=== PATIENT | female | born 1930 | race Caucasian/White ===

== ENCOUNTER 2017-12-07 11:50 | Inpatient (IN) | payer MEDICARE | END 2017-12-18 09:00 | DRG 177 | LOC: D.ER 11:50 → D.M2 16:52 | DX: J10.08 Influenza due to other identified influenza virus with other specified pneumonia (principal); J96.01 Acute respiratory failure with hypoxia; J15.6 Pneumonia due to other Gram-negative bacteria; I50.30 Unspecified diastolic (congestive) heart failure; J13 Pneumonia due to Streptococcus pneumoniae; H35.30 Unspecified macular degeneration; R25.1 Tremor, unspecified; S92.401A Displaced unspecified fracture of right great toe, initial encounter for closed fracture; X58.XXXA Exposure to other specified factors, initial encounter; R41.0 Disorientation, unspecified; Z86.73 Personal history of transient ischemic attack (TIA), and cerebral infarction without residual deficits; E87.6 Hypokalemia ==

== ENCOUNTER 2018-12-20 02:27 | Inpatient (IN) | payer MEDICARE ==
[~2018-12-20] VITALS: Ht 162.6 cm; Wt 74.1 kg
[2018-12-20] VITALS (73 sets, daily range): BP systolic 39–167; BP diastolic 23–130; BMI 28.6
--- NOTE | ~2018-12-20 | HEMODYNAMI ---
PATIENT:LOBO HILARIO MEDICAL RECORD: [id number] : 30 LOCATION:[id number] ADMISSION DATE: 12/20/18 Generatedon:12/20/201813:28 Patient name: LOBO HILARIO Patient #: [id number] SSN: : [id number] Date of study: 12/20/2018 Page: Of Hemodynamic Procedure Report Patient Data Patient Demographics Procedure consent was obtained First Name: LOBO Gender: Female Last Name: SULAIMAN : 1930 [facility] Initial: L Age: 88 year(s) Patient #: [id number] Race: Unknown Additional ID: [id number] Contact details Address: [address] [address] State: [place] City: [place] Zip code: [address] Admission Admission Data Admission Date: 12/20/2018 Admission Time: 6:15 Arrival Date: 12/20/2018 Arrival Time: 6:15 Admit Source: Other Insurance Payor: Medicare Room #: D.[id number] Procedure Procedure Types Cath Procedure Diagnostic Procedure LHC LHC w/Coronaries Sedation Charges Moderate Sedation up to 30 minutes PCI Procedure Coronary Stent Coronary Stent Initial x2 Procedure Description Procedure Date Procedure Date: 12/20/2018 Procedure Start Time: 12:28 Procedure End Time: 13:14 Procedure Staff Name Function Tiffani Peck RT Monitor Emanuel Doll RN Nurse Vel Martinez MD Performing Physician Sara Varner RT Scrub Procedure Data Cath Procedure Fluoroscopy Diagnostic fluoroscopy Total fluoroscopy Time: time: 14.5 min 14.5 min Diagnostic fluoroscopy Total fluoroscopy dose: dose: 2014 mGy 2015 mGy Contrast Material Contrast Material Type Amount (ml) Isovue 300 175 Entry Location Entry Primary Successful Side Size Upsize Upsize Entry Closure Succes sful Closure Location (Fr) 1 (Fr) 2 (Fr) Remarks Device Remarks Femoral Right 5 Fr 6 Fr Exoseal artery Short Estimated blood loss: 5 ml Diagnostic catheters Device Type Used For End Catheter Placement MULTIPACK JL 4.0 5Fr Left Coronary catheter Angiography MULTIPACK 3DRC 5Fr Right Coronary catheter Angiography MULTIPACK Pigtail 5 Fr LV Angiography catheter Procedure Complications No complications Procedure Medications Medication Administration Route Dosage Oxygen Levophed (8mg/250ml I.V. drip 10 mcg/min D5W) Diprivan 1% I.V. 30 mcg/kg/min (Propofol) 0.9% NaCl I.V. 125 ml/hr Lidocaine 2% added to field 20 Heparin Flush Bag added to field 2 bags (1000units/500ml NS) Heparin Bolus I.V. 7000 units Nitroglycerin IC/IA I.C. 100 mcg Integrilin (Bolus I.V. 6.2 ml 2mg/ml) Levophed (8mg/250ml I.V. drip 5 mcg/min D5W) Plavix 600 mg Hemodynamics Rest Heart Rate: 60 (bpm) Pressure Samples Time Site Value (mmHg) Purpose Heart Use Rate(bpm) 12:36 LV 217/22,36 Snapshot 56 12:36 LV 202/20,30 Pullback 56 12:36 AO 150/29(134) Pullback 56 Gradients Valve Time Site 1 Site 2 Mean SEP/DFP Peak To Heart Use (mmHg) (sec/min) Peak Rate (mmHg) (bpm) Aortic 12:36 LV AO 23 26 52 56 202/20,30 150/29(134) Calculations Valve P-P Mean Valve Index Valve Source Name Gradient Area Flow (cm2) Aortic 52 23 52 23 Snapshots Pre Cath Intra NCS Post Cath Vital Signs Time Heart Resp SPO2 etCO2 NIBP (mmHg) Rhythm Pain Sedation Rate (ipm) (%) (mmHg) Status Level (bpm) 12:17:09 59 14 98 0 136/57(100) NSR 0 (11) 5(A) , No pain 12:22:36 56 14 100 0 123/55(95) NSR 0 (11) 5(A) , No pain 12:27:50 56 14 100 0 132/58(121) NSR 0 (11) 5(A) , No pain 12:33:15 57 17 100 0 150/60(118) NSR 0 (11) 5(A) , No pain 12:38:53 57 14 100 0 180/67(138) NSR 0 (11) 5(A) , No pain 12:45:02 57 14 100 0 138/55(100) NSR 0 (11) 5(A) , No pain 12:50:52 56 14 100 0 117/65(78) NSR 0 (11) 5(A) , No pain 12:56:16 55 14 100 0 166/66(126) NSR 0 (11) 5(A) , No pain 13:02:04 56 14 100 0 181/64(133) NSR 0 (11) 5(A) , No pain 13:06:45 55 14 100 0 195/72(144) NSR 0 (11) 5(A) , No pain 13:12:51 55 14 100 0 166/68(146) NSR 0 (11) 5(A) , No pain Medications Time Medication Route Dose Verified Delivered Reason Notes Effectiveness by by 12:16:28 Oxygen 100% per et Vel Buffie Per physician per icu intubated tube Karlos Doll RN vent settings 12:17:16 Levophed I.V. drip 10 mcg/min Vel Buffie Per physician (8mg/250ml D5W) Karlos Doll RN 12:17:54 Diprivan 1% I.V. 30 Vel Buffie Per physician for (Propofol) mcg/kg/min Karlos Doll RN sedatio n on vent 12:18:43 0.9% NaCl I.V. 125 ml/hr Vel Buffie Per physician Karlos Doll RN 12:18:57 Lidocaine 2% added to 20ml vial Vel Vel for local field Karlos Martinez MD anesthetic 12:19:06 Heparin Flush added to 2 bags Vel Vel used for Bag field Karlos Martinez MD procedure (1000units/500ml NS) 12:41:15 Heparin Bolus I.V. 7000 units Vel Buffie for verified Karlos Doll RN anticoagulation with dr martinez 12:49:05 Nitroglycerin I.C. 100 mcg Vel Vel for IC/IA Karlos Martinez MD vasodilation 12:49:14 Integrilin I.V. 6.2 ml Vel Buffie for Wasted (Bolus 2mg/ml) Karlos Doll RN antiplatelet 3.8 ml therapy of vial 13:15:05 Levophed I.V. drip 5 mcg/min Vel Buffie Per physician (8mg/250ml D5W) Karlos Doll RN 13:20:40 Plavix via ngt 600 mg Vel Castellanos for with 20 Karlos Doll RN antiplatelet ml flush therapy Procedure Log Time Note 11:49:45 Admit Source: Other 11:49:48 Arrival Date: 12/20/2018 6:15:00 AM 11:49:57 Insurance Payor : Medicare 11:50:36 Diagnostic Cath Status : Elective 11:50:54 Emanuel Doll RN sent for patient. Start room use. 11:50:55 Time tracking: Regular hours (M-F 7:00 - 5:00) 11:51:01 Plan of Care:Hemodynamics will remain stable., Cardiac rhythm will remain stable., Comfort level will be maintained., Respiratory function will remain adequate., Patient/ family verbilizes understanding of procedure., Procedure tolerated without complication., Recovers from procedure without complications.. 12:07:02 Patient received from ICU to CCL 1 Alert and oriented. Tansferred to table in Supine position. 12:07:03 Correct patient and procedure confirmed by team. 12:07:03 Warm blankets applied, and gabrielle hugger turned on for patient comfort. 12:07:05 Signed procedure consent form obtained from patient. 12:07:06 ECG and BP/O2 sat monitors applied to patient. 12:14:24 Vital chart was started 12:14:51 Baseline sample Acquired. 12:14:58 Rhythm: sinus bradycardia 12:15:00 Full Disclosure recording started 12:15:04 H&P Date Dictated: 12/20/2018 New H&P dictated by physician.. 12:15:06 Pre-procedure instructions explained to patient. 12:15:12 Pre-op teaching completed and patient verbalized understanding. 12:15:13 Family in waiting room. 12:15:18 Patient NPO since Midnight. 12:15:19 Is the patient allergic to Iodine/contrast media? No. 12:15:21 Was the patient premedicated? No 12:15:27 Is patient on blood thinner?Yes 12:15:31 ACC The patient was administered the following blood thiners within the last 24 hours: ACCLovenox 12:15:40 Patient diabetic? Yes. 12:15:42 If diabetic: On Metformin? No 12:15:44 Previous problem with sedation/anesthesia? No ? 12:15:46 Snore? Unknown 12:15:48 Sleep apnea? Unknown 12:15:53 Deviated septum? No 12:16:01 Opens mouth fully? Unknown 12:16:03 Sticks out tongue? Unknown 12:16:11 Airway obstruction? Yes pneumonia 12:16:14 Dentures? No ? 12:16:28 Oxygen per et tube 100% intubated was administered by Emanuel Doll RN; Per physician; per icu vent settings 12:17:16 Levophed (8mg/250ml D5W) 10 mcg/min I.V. drip was administered by Emanuel Doll RN; Per physician; 12:17:54 Diprivan 1% (Propofol) 30 mcg/kg/min I.V. was administered by Emanuel Doll RN; Per physician; for sedation on vent 12:18:43 0.9% NaCl 125 ml/hr I.V. was administered by Emanuel Doll RN; Per physician; 12:18:57 Lidocaine 2% 20ml vial added to field was administered by Vel Martinez MD; for local anesthetic; 12:19:06 Heparin Flush Bag (1000units/500ml NS) 2 bags added to field was administered by Vel Martinez MD; used for procedure; 12:22:21 Pre procedure: right dorsailis pedis pulse 2+ Normal; easily identifiable; not easily obliterated 12:22:24 Pre procedure: left dorsailis pedis pulse 2+ Normal; easily identifiable; not easily obliterated 12:22:28 Patient pain scale 0/10 ?. 12:23:12 IV patent on arrival in right forearm, left forearm, Rt subclavian with 0.9% NaCl at [facility]. 12:23:16 Lab results completed and on chart. 12:23:22 Right groin area was prepped with chlora-prep and draped in sterile fashion 12::23 Sharps counted by scrub and verified by R.N. 12::23 Alarms reviewed by R. N. 12:23:26 Physician arrived 12::27 --------ALL STOP TIME OUT------ 12:23:28 Final Timeout: patient, procedure, and site verified with staff and physician. All members of the team are in agreement. 12:23:43 Right groin site verified by team. 12:23:50 Fire Safety Assessment: A--An alcohol-based skin anteseptic being used preoperatively., C--Open oxygen or nitrous oxide is being used., D--An ESU, laser, or fiber-optic light is being used. 12:23:54 Physical assessment completed. ASA score P 5 - A moribund patient who is not expected to survive without the operation as per Vel Martinez MD. 12:23:59 Sedation plan: IV Moderate Sedation Medication:Versed, Fentanyl 12:24:12 Use device set Femoral Dx 12:24:13 ACIST Syringe (26085) opened to sterile field. 12:24:14 DIAGNOSTIC WIRE .035 260cm J wire (828933) opened to sterile field. 12:24:14 Medline Cath Pack ([id number]) opened to sterile field. 12:24:14 Bag Decanter (2002S) opened to sterile field. 12:24:16 ACIST Hand Control (49174) opened to sterile field. 12:24:17 ACIST Manifold (40918) opened to sterile field. 12:24:18 DIAGNOSTIC Multipack 5Fr catheter set (BL5782) opened to sterile field. 12:24:21 Tegaderm 4 x 4 (1626W) opened to sterile field. 12:24:22 SHEATH 5FR Artemus (CFG549) opened to sterile field. 12:27:51 Procedure started. 12:28:04 Local anesthetic to right femoral artery with Lidocaine 2% by Vel Martinez MD.INITIAL ACCESS ONLY 12:28:12 A 5 Fr sheath was inserted into the Right Femoral artery 12:28:58 A MULTIPACK JL 4.0 5Fr catheter was advanced over the wire and used for Left Coronary Angiography. 12:30:47 LCA angiography performed. 12:30:50 Injector settings: Ml/sec: 3, Volume: 6, 12:31:39 CVL line checked and in place 12:32:24 Catheter removed. 12:32:29 A MULTIPACK 3DRC 5Fr catheter was advanced over the wire and used for Right Coronary Angiography. 12:33:40 RCA angiography performed. 12:34:03 Injector settings: Ml/sec: 3, Volume: 6, 12:34:16 Catheter removed. 12:35:37 A MULTIPACK Pigtail 5 Fr catheter was advanced over the wire and used for LV Angiography. 12:36:10 LV hemodynamics recorded. 12:36:12 LV gram done using MCDONALD 12:36:15 Injector settings: Ml/sec: 5, Volume: 15, 12:37:04 Proceeding to intervention. 12:37:24 EF : 15 % 12:37:43 Catheter removed. 12:38:15 GUIDE 6FR XBLAD 3.5 catheter ([id number]) opened to sterile field. 12:38:16 INFLATOR Merit BasixCompak (FK5255) opened to sterile field. 12:38:16 BMW 300cm [place] 2 J wire ([id number]) opened to sterile field. 12:38:17 SHEATH 6FR Artemus (SRU065) opened to sterile field. 12:38:31 Sheath upsized to a 6 Fr Short. 12:38:41 6 Fr xblad 3.5 guide catheter was inserted over the wire 12:38:45 bmw wire advanced. 12:41:15 Heparin Bolus 7000 units I.V. was administered by Emanuel Doll RN; for anticoagulation; verified with dr martinez 12:43:02 Wire advanced across lesion. 12:44:11 Inflate balloon Inflation number: 1 A EMERGE OTW 2.0 x 12 balloon ([id number]) was prepped and advanced across the Prox CX, then inflated to 10 SUSAN for 0:10 (min:sec). 12:45:11 Balloon removed over the wire. 12:48:24 Place stent Inflation Number: 2 A INTEGRITY OTW 2.5 X 12 stent ([id number]) was prepped and advanced across the Prox CX. The stent was deployed at 12 SUSAN for 0:10 (min:sec). 12:48:34 Stent catheter was removed intact over wire. 12:49:05 Nitroglycerin IC/IA 100 mcg I.C. was administered by Vel Martinez MD; for vasodilation; 12:49:14 Integrilin (Bolus 2mg/ml) 6.2 ml I.V. was administered by Emanuel Doll RN; for antiplatelet therapy; Wasted 3.8 ml of vial 12:49:30 patient went into Ventricular Tachycardia 12:49:51 Quick combo pads placed on patients chest and back. 12:50:05 Defibrillator synced and charged to 200 Joules. 12:50:07 Shock delivered. 12:51:34 Patient cardioverted to sinus rhythm . 12:55:55 Place stent Inflation Number: 3 A INTEGRITY OTW 2.25 X 12 stent ([id number]) was prepped and advanced across the Prox CX. The stent was deployed at 12 SUSAN for 0:10 (min:sec). 13:00:11 Stent catheter was removed intact over wire. 13:00:24 Wire redirected to diagonal. 13:05:57 Inflation number: 1 The EMERGE OTW 2.0 x 12 balloon ([id number]) was reinflated across the 1st Diag, to 10 SUSAN for 0:10 (min:sec). 13:06:27 Inflation number: 2 The EMERGE OTW 2.0 x 12 balloon ([id number]) was reinflated across the 1st Diag, to 12 SUSAN for 0:10 (min:sec). 13:08:19 Balloon removed over the wire. 13:10:51 Place stent Inflation Number: 3 A INTEGRITY OTW 2.5 X 18 stent ([id number]) was prepped and advanced across the 1st Diag. The stent was deployed at 12 SUSAN for 0:10 (min:sec). 13:11:46 Stent catheter was removed intact over wire. 13:11:47 Guide catheter removed. 13:11:47 Wire removed. 13:12:46 EXOSEAL 6Fr (EX600) opened to sterile field. 13:12:56 Sheath removed intact; hemostasis achieved with Exoseal to the Right Femoral artery. 13:12:58 Procedure ended.(Physican Out) 13:13:24 Fluoroscopy time 14.50 minutes. 13:13:29 Fluoroscopy dose: 2014 mGy 13:13:29 Flurop Dose total: 2014 13:13:34 Contrast amount:Isovue 300 175ml. 13:13:36 Sharps counted by scrub and verified by R.N. 13:13:37 Insertion/operative site no bleeding no hematoma. 13:13:40 Post-op/insertion site Right Femoral artery dressed using a 4 x 4 and Tegaderm. 13:13:43 Post right femoral artery:stable 13:13:45 Post Procedure Pulses reassessed and unchanged 13:13:47 Post procedure rhythm: unchanged. 13:13:50 Estimated blood loss: 5 ml 13:13:52 Post procedure instruction explained to patient.Patient verbalizes understanding. 13:13:53 Patient needs reinforcement of post procedure teaching. 13:14:11 Procedure type changed to Cath procedure, Diagnostic procedure, LHC, LHC w/Coronaries, Sedation Charges, Moderate Sedation up to 30 minutes, PCI procedure, Coronary Stent, Coronary Stent Initial x2 13:14:15 Procedure and supply charges have been captured, reviewed, submitted and are correct. 13:14:23 Procedure Complication : No complications 13:14:26 See physician's report for complete and final results. 13:14:26 Vital chart was stopped 13:14:36 Report given to ICU. 13:14:38 Patient transfered to ICU with Stretcher. 13:14:41 Full Disclosure recording stopped 13:14:41 Procedure ended. 13:14:56 ACC-PCI Only Patient was given prescriptions, or instructed by Vel Martinez MD to start/continue the following medications upon discharge: Plavix 13:14:58 End room use (Document Last) 13:15:05 Levophed (8mg/250ml D5W) 5 mcg/min I.V. drip was administered by Emanuel Doll RN; Per physician; 13:20:40 Plavix 600 mg via ngt was administered by Emanuel Doll RN; for antiplatelet therapy; with 20 ml flush Intervention Summary Intervention Notes Time ActionType Lesion and Equipment Action# Pressure Duration Attributes Used 12:44:11 Inflate Prox CX EMERGE OTW 1 10 00:10 balloon 2.0 x 12 balloon ([id number]) 12:48:24 Place stent Prox CX INTEGRITY 2 12 00:10 OTW 2.5 X 12 stent ([id number]) 12:55:55 Place stent Prox CX INTEGRITY 3 12 00:10 OTW 2.25 X 12 stent ([id number]) 13:05:57 Reinflate 1st Diag EMERGE OTW 1 10 00:10 balloon 2.0 x 12 balloon ([id number]) 13:06:27 Reinflate 1st Diag EMERGE OTW 2 12 00:10 balloon 2.0 x 12 balloon ([id number]) 13:10:51 Place stent 1st Diag INTEGRITY 3 12 00:10 OTW 2.5 X 18 stent ([id number]) Device Usage Item Name Manufacture Quantity Catalog Number Hospital Part Current [facility] Lot# / Charge Number Stock Stock Serial# Code ACIST Acist 1 47484 877197 005172 905553 20 Syringe Medical (11476) Systems Inc Bag Decanter Microtek 1 681675 67236 288218 5 () Medical Inc. Medline Cath Medline 1 [id number] 026574 47879 111620 5 Pack ([id number]) DIAGNOSTIC St Harjeet 1 388393 211439 046436 082940 30 WIRE .035 260cm J wire (425806) ACIST Hand Acist 1 70672 999475 097087 873071 5 Control Medical (07662) Systems Inc ACIST Acist 1 15757 197485 539628 050769 5 Manifold Medical (12981) Systems Inc DIAGNOSTIC Cardinal 1 UX6408 808263 56041 220795 30 Multipack Health 5Fr catheter set (BN4609) Tegaderm 4 x 3M 1 1626W 364468 546379 773172 5 4 (1626W) SHEATH 5FR Terumo 1 ZXV832 169141 476593 173127 5 Artemus (SNL640) MULTIPACK JL Cardinal 1 325903 5 4.0 5Fr Health catheter MULTIPACK Cardinal 1 663274 5 3DRC 5Fr Health catheter MULTIPACK Cardinal 1 680952 5 Pigtail 5 Fr Health catheter GUIDE 6FR Cardinal 1 [id number] 267959 372720 850518 10 XBLAD 3.5 Health catheter ([id number]) BMW 300cm Nguyen 1 [id number] 711344 236348 234472 5 [place] 2 Vascular J wire (2000654G) INFLATOR Merit 1 DX1247 302188 308868 088740 15 [facility] Medical BasixCompak (LY0804) SHEATH 6FR Terumo 1 JHA621 405677 464331 765197 40 Artemus (PCP263) EMERGE OTW [place] 1 [id number] 111307 282125 248831 5 [id number] 2.0 x 12 Scientific balloon ([id number]) INTEGRITY Medtronic 1 [id number] 236455 957488 165264 3 [id number] OTW 2.5 X 12 stent ([id number]) INTEGRITY Medtronic 1 [id number] 952825 191380 327804 7 [id number] OTW 2.25 X 12 stent ([id number]) INTEGRITY Medtronic 1 [id number] 524344 486438 611846 8 [id number] OTW 2.5 X 18 stent ([id number]) EXOSEAL 6Fr Cardinal 1 EX600 476190 028245 669401 10 (EX600) Health Signature Audit Senath Stage Time Signature Unsigned Intra-Procedure 12/20/2018 Tiffani Peck RT(R) 1:26:47 PM RT(R) 12/20/2018 1:28:25 PM Intra-Procedure 12/20/2018 Tiffani Peck 1:28:55 PM RT(R) Signatures Monitor : Tiffani Peck RT Signature : Date : Time : [id number] [place] [address]
[~2018-12-20 02:27] MED LIST: ACETAMINOPHEN325 MG PO; ALBUTEROL2.5 MG/3 M UPD; BENADRYL25 MG PO; FAMVIR500 MG PO; K-TAB10 MEQ PO; LASIX20 MG PO; MELOXICAM; MOBIC7.5 MG PO; MUCINEX600 MG PO; OCUFLOX 0.3 % OP5 ML RIGHT EYE; PRED FORTE5 ML EACH EYE; PROPRANOLOL HCL60 MG PO; TRAVATAN Z2.5 ML EACH EYE; VALTREX1000 MG PO
[2018-12-20] MEDS ORDERED: TRAVATAN Z2.5 ML EACH EYE (02:50)
[2018-12-20] MEDS ORDERED: ARICEPT23 MG PO (02:50)
[2018-12-20 03:18] LABS: BASOPHILS 0.2 % (0-2); EOSINOPHILS 0.5 % (0-7); HEMATOCRIT 43.5 % (36.0-48.0); HEMOGLOBIN 14.5 g/dL (12-16); IMMATURE GRANULOCYTES 0.6 % (0-5); MCH 31.3 pg (26.0-34.0); MCHC 33.3 g/dL (31.0-37.0); MEAN PLATELET VOLUME 10.1 fL (7.4-10.4); MONOCYTES 4.6 % (2-11); NEUTROPHILS 87.1 % (40-80); PLATELET COUNT 263 10x3/uL (130-400); RBC 4.63 10x6/uL (4.00-5.40); RDW 14.5 % (11.5-14.5); WBC 19.8 10x3/uL (4.8-10.8)
[2018-12-20 03:25] LABS: APTT 25.2 SECONDS (22.8-39.4); INR 1.04 (0.85-1.17); PROTIME 13.1 SECONDS (11.6-15.0)
[2018-12-20 03:30] LABS: ALBUMIN 3.2 g/dL (3.4-5.0); ALKALINE PHOSPHATASE 58 U/L (46-116); ALT (SGPT) 24 U/L (10-68); BILIRUBIN - TOTAL 0.74 mg/dL (0.2-1.3); CALC OSMOLALITY 295 mosm/kg (275-300); CALCIUM 8.5 mg/dL (8.5-10.1); CARBON DIOXIDE 23.3 mmol/L (21.0-32.0); CHLORIDE - SERUM 104 mmol/L (98-107); CREATININE - SERUM 1.4 mg/dL (0.6-1.3); GLUCOSE 296 mg/dL (74-106); POTASSIUM - SERUM 3.9 mmol/L (3.5-5.1); PROTEIN - SERUM 7.3 g/dL (6.4-8.2); SODIUM 142 mmol/L (136-145); UREA NITROGEN 18 mg/dL (7-18); eGFR NON AFRICAN AMERICAN 38 mL/min (90-120)
[2018-12-20 03:33] LABS: D-DIMER-QUANTITATIVE 13.66 ug/mLFEU (0.20-0.54)
[2018-12-20 03:45] LABS: CKMB 2.4 U/L (0.0-3.6); CREATINE KINASE 95 UL (21-215); PRO BNP 6982 pg/mL (0-450)
[2018-12-20 03:46] LABS: TROPONIN-I 0.488 ng/mL (0.000-0.060)
--- NOTE | 2018-12-20 03:48 | NUR ---
ELEVATED TROP 0.488. ADVISED EDP
--- NOTE | 2018-12-20 03:50 | NUR ---
PT MOVED TO TRAUMA ROOM 3 TO PREPARE FOR INTUBATION.
--- NOTE | 2018-12-20 04:03 | NUR ---
PT INTUBATED, 7.5 ETT, 22 AT THE LIP
--- NOTE | 2018-12-20 04:16 | NUR ---
PROPOFOL INFUSION STARTED AT 5MCG/KG.
--- NOTE | 2018-12-20 04:22 | NUR ---
AFTER POST INTUBATION XR EDP INSTRUCTS TO MOVE ETT BACK 3 CM. ETT NOW 25 AT THIS LIP. RT AT BEDSIDE.
--- NOTE | 2018-12-20 04:28 | NUR ---
INFUSION RATE OF PROPOFOL CHANGED TO 4MCG/KG DUE TO PT DECREASED BP.
--- NOTE | 2018-12-20 04:45 | NUR ---
PROPOFOL RATE INCREASED TO 5MCG/KG. PT TOLERATING WELL.
--- NOTE | 2018-12-20 05:20 | NUR ---
RN, RT, RADIOLOGY TRANSPORTED PT TO CT FOR CTA OF CHEST DUE TO ELEVATED D DIMER. PT TOLERATED WELL.
--- NOTE | 2018-12-20 06:30 | NUR ---
PT FAMILY UPDATED ON PLAN OF CARE. PT APPEARS TO BE RESTING COMFORTABLY, EYES CLOSED.
--- NOTE | 2018-12-20 07:25 | NUR ---
RECEIVED FROM ER FROM STRETCHER. TRANSFERED TO BED. AWAKES GRABS ETT WHEN SHE CAN. ETT SECURE BILATERAL LUNGS EQUAL AND VERY CONGESTED. PLACED ON VENT. IV X 2 RIGHT FOREARM SALINE LOCKED. LEFT AC 18 GAUGE INFUSING WITH NS AND DIPRIVAN GTT AT 25 MCG/KG/MIN. MORROW CATH PATENT DRAINING CLEAR YELLOW URINE. SCD APPLIED LOWER LEGS. FAMILY HERE
--- NOTE | 2018-12-20 09:15 | NUR ---
PATIENT BLOOD PRESSURE DROPPING, BOLUS NS STARTED. DR. DOWLING CALLED, STATES DR. GUTIERREZ IS FINGERNAIL SCULPTURER. CALLED DR. GUTIERREZ. ORDERS RECEIVED FOR BOLUS OF NS AND LEVOPHED GTT TO MAINTAIN SYS BLOOD PRESSURE GREATER THAN 90. ORDERS TO CONSULT DR. CABRERA. DR. CABRERA CALLED. LEVOPHED GTT AT 30 MCG/MIN. NS IV BOLUS INFUSING BLOOD PRESSURE STILL IN 70'S. ORDERS RECEIVED FOR VASOPRESSIN GTT. EKG, ECHO, TROPONIN LEVEL. CENTRAL LINE PLACEMENT BY SURGEON. CONSULT FOR DR. ROBLES.
--- NOTE | 2018-12-20 09:25 | NUR ---
rash noted on chest, abd and upper legs. dr. warren notified solu medrol 60 mg iv ordered. family notified of patient status. states pateint has never been allergic to anything in the past. levequin added to patient allergy list. levequin stopped.
[2018-12-20 09:50] LABS: APPEARANCE CLEAR (CLEAR); BILIRUBIN NEGATIVE (NEGATIVE); COLOR YELLOW (YELLOW); GLUCOSE NEGATIVE (NEGATIVE); KETONE NEGATIVE (NEGATIVE); NITRITE NEGATIVE (NEGATIVE); PROTEIN 2+ mg/dL (NEGATIVE); SPECIFIC GRAVITY 1.015 (1.005-1.020); UROBILINOGEN NORMAL (NORMAL)
[2018-12-20 09:52] LABS: BACTERIA FEW /hpf (NONE SEEN); EPITHELIAL CELLS 0-5 /hpf (0-5); HYALINE CAST 0-5 /lpf (NONE SEEN); RED CELLS - URINE 0-5 /hpf (0-5); WHITE CELLS - URINE 0-5 /hpf (0-5)
--- NOTE | 2018-12-20 10:45 | NUR ---
DR. CABERRA AND DR. GUTIERREZ NOTIFIED OF TROP LEVEL
--- NOTE | 2018-12-20 10:55 | NUR ---
DR. DENNIS AND TRAVIS PAGED REGARDING CONSULTS
--- NOTE | 2018-12-20 11:30 | NUR ---
DR. ROBLES HERE CENTRAL LINE PLACE IN ORGAN GRINDER RIGHT SUBCLAVIAN. PATIENT TOLERATED FAIR. CONSENT SIGNED BY SON JOSE ELIAS HAAS PATIENT POA. CONSENT FOR HEART CATH SIGNED
--- NOTE | 2018-12-20 12:05 | NUR ---
to pipelines laborer per bed and portable vent. levophed at 10 mcg/min. dipirvan at 25 mcg/kg/min. family notified patient has left
[2018-12-20 12:25] LABS: BASOPHILS 0.1 % (0-2); EOSINOPHILS 0.1 % (0-7); HEMOGLOBIN 13.2 g/dL (12-16); IMMATURE GRANULOCYTES 0.4 % (0-5); LYMPHOCYTES 23.8 % (15-50); MCH 30.6 pg (26.0-34.0); MCV 92.8 fL (80.0-100.0); MEAN PLATELET VOLUME 10.6 fL (7.4-10.4); MONOCYTES 3.8 % (2-11); NEUTROPHILS 71.8 % (40-80); PLATELET COUNT 224 10x3/uL (130-400); RBC 4.31 10x6/uL (4.00-5.40); RDW 14.4 % (11.5-14.5)
[2018-12-20 12:27] LABS: WBC 9.6 10x3/uL (4.8-10.8)
[2018-12-20 12:32] LABS: ANION GAP 20.8 mmol/L (8-16); CARBON DIOXIDE 23.7 mmol/L (21.0-32.0); CREATININE - SERUM 1.3 mg/dL (0.6-1.3); POTASSIUM - SERUM 3.5 mmol/L (3.5-5.1)
[2018-12-20 12:34] LABS: CALCIUM 6.9 mg/dL (8.5-10.1)
--- NOTE | 2018-12-20 13:50 | NUR ---
RETURNED TO ROOM PER BED. ETT SECURE RETURNED TO VENT. BILATERAL LUNG SOUNDS EQUAL STILL SOME CONGESTION BUT CLEARER. LEVOPHED AT 5 MCG/MIN. DIPRIVAN 30 MCG/KG/MIN. NS AT 125 ML HOUR. MONITOR SR. RIGHT GROIN WITHOUT BLEEDING SWELLING OR BRUISNG DRESSING DRY AND INTACT. FAINT PEDAL PULSE WITH DOPPLER. FAMILY NOTIFIED OF PATIENT RETURNED. ALLOW TO VISIT WITH PATIENT. CHEST X-RAY FOR LINE PLACEMENT DONE. MORROW CATH PATENT.
--- NOTE | 2018-12-20 14:15 | NUR ---
LEVOPHED INCREASED TO 10 MCG/MIN. RIGHT GROIN DRESSING DRY AND INTACT. FEET WARM PEDAL PULSE WITH DOPPLER
--- NOTE | 2018-12-20 14:30 | NUR ---
LEOPHED AT 7 MCG/MIN. DRESSING DRY AND INTACT RIGHT GROIN. PEDAL PULSES WITH DOPPLER. FAMILY UPDATED
--- NOTE | 2018-12-20 15:00 | NUR ---
LEVOPHED IN RIGHT SUBCLAVAIN CENTRAL LINE. STILL AT 7 MCG/MIN. CVP LINE SET READING 5. DIPIRVAN AT 30 MCG/GKMIN. NO CHANGES
--- NOTE | 2018-12-20 16:01 | NUR ---
LEVOPHED STILL AT 7 MCG/MIN. RIGHT GROIN DRESSING DRY AND INTACT. NG DRAINING CLEAR LIQUID. MOD AMOUNT. MINIMAL SECRETIONS FROM MOUTH AND ETT.
--- NOTE | 2018-12-20 17:00 | NUR ---
RIGHT GROIN DRESSING DRY AND INTACT. PEDAL PULSE IN ANKLE WITH DOPPLER. LEVOPHED STILL AT 7 MCG/MIN. DIPRIVAN AT 30 MCG/KG/MIN. RESTING WELL ON DIPRIVAN. FAMILY UPDATED
--- NOTE | 2018-12-20 18:00 | NUR ---
DIPRIVAN DECREASED TO 25 MCG/KG/MIN. LEVOPHED STILL AT 7 MCG/MIN. RIGHT GROIN DRESSING DRY AND INTACT. PEDAL PULSES AT ANKLE WITH DOPPLER. FEET WARM
--- NOTE | 2018-12-20 19:02 | NUR ---
REPORT RECEIVED, PT WITH EYES OPEN WATCHING TV. ALERT AND ORIENTED. NO VISABLE SIGNS OF BLEEDING NOTED. ON ROOM AIR. DENIES ANY NEEDS AT THIS TIME. CALL LIGHT IN REACH. WILL CONTINUE TO OBSERVE
--- NOTE | 2018-12-20 19:15 | NUR ---
REPORT RECEIVED. PT SEDATED ON VENT, A/C 15,500, 80%, 7 PEEP. RIGHT SUBCLAVIAN DRESSING INTACT WITH SCANT BLOOD NOTED. MORROW NOTED WITH YELLOW URINE NOTED. REPOSITIONING PROVIDED. WILL CONTINUE TO OBSERVE.
--- NOTE | 2018-12-20 19:25 | NUR ---
REPORT RECEIVED. PT ALERT AND ORIENTED. VITALS SIGNS WNL. DENIES ANY NEEDS. CALL LIGHT IN REACH. WILL CONTINUE TO OBSERVE.
--- NOTE | 2018-12-20 20:46 | NUR ---
TRANSFER CENTER CALL AND GIVES REPORT OF DENIALS OF [facility], AND [facility] PACKETS SENT TO [facility], [facility], [facility]. , [facility], AND [facility].
--- NOTE | 2018-12-20 21:57 | NUR ---
PT CONTINUES SEDATION ON VENT. LEVOPHED DECREASED TO 6MCG/MIN FROM 7MCG/MIN CURRENT B/P 107/56 MAP 75. WILL CONTINUE TO OBSERVE AND TITRATE TOLERATED.
--- NOTE | 2018-12-20 23:12 | NUR ---
REASSESSMENT COMPLETED, SEE FLOW SHEET. NO CHANGES NOTED. WILL CONTINUE TO OBSERVE
[2018-12-21] VITALS (46 sets, daily range): BP systolic 85–161; BP diastolic 38–95; Ht 162.6 cm; Wt 74.1 kg
--- NOTE | 2018-12-21 01:49 | NUR ---
LEVOPHED DECREASED FROM 4MCG TO 3MCG/MIN. PT TOLERATING TITRATION AT THIS TIME. WILL CONTINUE TOLERATED. WILL CONTINUE TO OBSERVE.
--- NOTE | 2018-12-21 02:35 | NUR ---
ASSESSING PEDAL PULSED WITH DOPPLER, PT BEGAN MOVING FEET, OPENED HER EYES. PT DID NOT FOLLOW COMMANDS. WILL CONTINUE TO OBSERVE.
--- NOTE | 2018-12-21 03:41 | NUR ---
REASSESSMENT COMPLETED, SEE FLOW SHEET. CVL DRESSING CHANGED DUE TO BLEEDING FROM BEING GIVEN HEPARIN FROM HEART CATH. NO FRESH BLEEDING NOTED WITH REMOVAL OF OLD DRESSING. PT TOLERATED WELL. WILL CONTINUE TO OBSERVE.
[2018-12-21 05:18] LABS: BASOPHILS 0.1 % (0-2); EOSINOPHILS 0 % (0-7); HEMATOCRIT 31.4 % (36.0-48.0); HEMOGLOBIN 10.6 g/dL (12-16); IMMATURE GRANULOCYTES 0.4 % (0-5); LYMPHOCYTES 9.1 % (15-50); MCH 30.6 pg (26.0-34.0); MCHC 33.8 g/dL (31.0-37.0); MCV 90.8 fL (80.0-100.0); MONOCYTES 3.7 % (2-11); NEUTROPHILS 86.7 % (40-80); PLATELET COUNT 223 10x3/uL (130-400); RBC 3.46 10x6/uL (4.00-5.40); RDW 14.9 % (11.5-14.5); WBC 16.5 10x3/uL (4.8-10.8)
--- NOTE | 2018-12-21 05:27 | NUR ---
BATH GIVEN WITH COMPLETE LINEN CHANGE. PT TOLERATED WELL. FOLLOWED SOME COMMANDS. LEVOPHED STOPPED AT 0500, TOLERATING WELL AT THIS TIME. WILL CONTINUE TO OBSERVE
[2018-12-21 05:56] LABS: BILIRUBIN - DIRECT 0.13 mg/dL (0.00-0.30); BILIRUBIN - INDIRECT 0.22 mg/dL (0.00-1.00); BILIRUBIN - TOTAL 0.35 mg/dL (0.2-1.3); CARBON DIOXIDE 22.2 mmol/L (21.0-32.0); CREATININE - SERUM 1.2 mg/dL (0.6-1.3); MAGNESIUM - SERUM 1.7 mg/dL (1.8-2.4); POTASSIUM - SERUM 3.2 mmol/L (3.5-5.1); VANCOMYCIN - RANDOM 9.1 ug/mL (10.0-20.0)
[2018-12-21 05:57] LABS: ALBUMIN 1.9 g/dL (3.4-5.0); CALCIUM 6.7 mg/dL (8.5-10.1); PROTEIN - SERUM 4.9 g/dL (6.4-8.2)
[2018-12-21 05:58] LABS: TROPONIN-I 7.864 ng/mL (0.000-0.060)
--- NOTE | 2018-12-21 07:00 | NUR ---
RECEIVED BEDSIDE REPORT ON PATIENT AND ASSUMED CARE OF PATIENT. PATIENT RESTING QUIETLY, SEDATED ON VENT. WILL AWAKEN TO VOICE AND FOLLOW COMMANDS, DRIFTS BACK TO SLEEP EASILY. DIPROVAN GTT AT 20 MCG/KG/MIN (9.4 CC/HR). POTASSIUM AND MAGNESSIUM INFUSING PER ELECTROLYTE PROTOCOL. NS AT 125 CC/HR. RIGHT SUBCLAVIAN CVL PATENT WITH DRESSING C/D/I. CVP ZEROED AND LEVELED - 8. IV 18 GA TO LEFT AC IS NSL. PATENT WITH POSITIVE BLOOD RETURN, EASILY FLUSHED. VSS. HEAD TO TOE ASSESSMENT COMPLETED. MORROW CATH WITH CLEAR YELLOW UOP.
--- NOTE | 2018-12-21 08:56 | NUR ---
DR. ERIC AT ROOM AND EXAMINES PATIENT AND UPDATED. ADVISED TO DECREASE FIO2 FROM 80% TO 50%. WILL TURN DOWN SEDATION AND BEGIN CPAP TRIAL FOR POSSIBLE EXTUBATION TODAY.
--- NOTE | 2018-12-21 09:00 | NUR ---
PATIENT TURNED AND REPOSITIONED VSS. FAMILY AT BEDSIDE QUESTIONS ANSWERED AND UPDATED ON PLAN OF CARE FOR DAY AND PATIENTS CONDITION.
--- NOTE | 2018-12-21 10:00 | NUR ---
CERTIFIED SURGICAL TECH/FIRST ASSISTANT AT ROOM AND ECHOCARIDOGRAM IN PROGRESS. VSS.
--- NOTE | 2018-12-21 10:35 | NUR ---
ECHOCARIOGRAM COMPLETE, TOLERATED WELL. VSS.
--- NOTE | 2018-12-21 11:00 | NUR ---
REASSESSMENT COMPLETED. VSS. PATIENT TURNED AND REPOSITIONED IN BED.
--- NOTE | 2018-12-21 11:35 | NUR ---
DIPRIGUSTAVO ON HOLD. PLACED ON C-PAP PER DR ERIC VIA RT. WILL CONT TO MONITOR.
--- NOTE | 2018-12-21 13:09 | NUR ---
EXTUBATED TO 4L NC PER RT. TOLLERATED WELL. INSTRUCTED NOT TO PULL AT LINES. NODS HEAD YES. MORROW CATH WITH PINK TINGED URINE IN TUBE. WILL CONT TO MONITOR.
--- NOTE | 2018-12-21 14:00 | NUR ---
FAMILY AT BEDSIDE. UPDATE GIVEN.
--- NOTE | 2018-12-21 17:18 | NUR ---
FAMILY AT BEDSIDE. UPDTE GIVEN. SR ON THE MONITOR.
--- NOTE | 2018-12-21 18:22 | NUR ---
PT RECIEVED ALERT, DENIES ALL NEEDS,VSS, WILL CONTINUE TO MONITOR
--- NOTE | 2018-12-21 19:47 | NUR ---
REPORT RECEIVED. PT WITH EYES OPEN AND CHEST RISING. CONFUSION NOTED ADN SPEECH GARBLED. PT ON N/C AT 4LPM WITH SPO2 98%. MORROW PATENT WITH BLOODY URINE NOTED. PT WITH FREQUENT COUGH, AND USES YONKER TO SUCTION SELF. LUNG SOUNDS WITH CRACKLES ALL LOBES. HR RRR. NO S/S OF DISTRESS. CALL LIGHT IN REACH. WILL CONTINUE TO OBSERVE.
[2018-12-21] MEDS ORDERED: ARICEPT23 MG PO (20:58)
[2018-12-21] MEDS ORDERED: TESSALON PERLE100 MG PO (20:59)
--- NOTE | 2018-12-21 21:35 | NUR ---
PT WITH TREMORS. PT GIVEN SIPS OF WATER AND TOLERATED WELL. DR CHOWDHURY CALLED AND RECEIVED ORDERS TO START PTS HOME MEDICATIONS. ARICEPT 10MG, PROPRANOLOL 60MG FOR TREMORS, TESSALON PEARLS 100MG Q8H PRN FOR COUGH, AND TRAVOPROST EYE GTTS ONE DROP TO EACH EYE, ORDERS ENTERED INTO [employer].
--- NOTE | 2018-12-21 22:12 | NUR ---
PT RECEIVED PO MEDICATIONS WITHOUT DIFFICULTY. NO S/S OF ASPIRATION NOTED. NO S/S OF DISTRESS. CALL LIGHT IN REACH. WILL CONTINUE TO OBSERVE
--- NOTE | 2018-12-21 23:46 | NUR ---
REASSESSMENT COMPLETED, SEE FLOW SHEET. WILL CONTINUE TO OBSERVE.
[2018-12-22] VITALS (20 sets, daily range): BP systolic 146–188; BP diastolic 65–88
--- NOTE | 2018-12-22 01:39 | NUR ---
PT RESTING WITH EYES CLOSED AND CHEST RISING. NO S/S OF DISTRESS. CALL LIGHT IN REACH. WILL CONTINUE TO OBSERVE.
--- NOTE | 2018-12-22 01:52 | NUR ---
PT CATHETER LEAKING. GOWN AND PADS CHANGED. BALLOON DEFLATED AND REINFLATED WITH RESISTANCE WHEN LIGHTLY PULLED. URINE FLOW THROUGH TUBE.
--- NOTE | 2018-12-22 03:42 | NUR ---
REASSESSMENT COMPLETED, SEE FLOW SHEET. OCCASIONAL FORCEFULL COUGH NOTED, SPO2 REMAINS 95% OR GREATER. NO COMPLAINTS OF PAIN. WILL CONTINUE TO OBSERVE
[2018-12-22 04:39] LABS: BASOPHILS 0.1 % (0-2); EOSINOPHILS 0.5 % (0-7); HEMATOCRIT 27.7 % (36.0-48.0); HEMOGLOBIN 9.1 g/dL (12-16); IMMATURE GRANULOCYTES 0.4 % (0-5); LYMPHOCYTES 12.7 % (15-50); MCH 30.7 pg (26.0-34.0); MCHC 32.9 g/dL (31.0-37.0); MEAN PLATELET VOLUME 9.9 fL (7.4-10.4); MONOCYTES 4.5 % (2-11); NEUTROPHILS 81.8 % (40-80); PLATELET COUNT 195 10x3/uL (130-400); RBC 2.96 10x6/uL (4.00-5.40); RDW 15.4 % (11.5-14.5); WBC 14.7 10x3/uL (4.8-10.8)
[2018-12-22 04:56] LABS: MCV 93.6 fL (80.0-100.0)
[2018-12-22 05:01] LABS: ANION GAP 15.3 mmol/L (8-16); CALCIUM 7.3 mg/dL (8.5-10.1); CARBON DIOXIDE 21.4 mmol/L (21.0-32.0); CREATININE - SERUM 0.9 mg/dL (0.6-1.3); VANCOMYCIN - RANDOM 8.8 ug/mL (10.0-20.0)
[2018-12-22 05:16] LABS: POTASSIUM - SERUM 3.7 mmol/L (3.5-5.1)
--- NOTE | 2018-12-22 05:40 | NUR ---
FSBS 71 4OZ OF ORANGE JUICE GIVEN. PT TOLERATED WELL. NO S/S OF ASPIRATION WITH SWALLOWING. PT CONTINUES TO HAVE OCCASIONAL COUGH.
--- NOTE | 2018-12-22 06:27 | NUR ---
PT LINENS CHANGED DUE TO LEAKING AROUND MORROW CATH, POSSIBLY DUE TO PT COUGH. PERICARE PROVIDED. CATHCARE PROVIDED. COUGH LESS FREQUENT. WILL CONTINUE TO OBSERVE.
--- NOTE | 2018-12-22 07:00 | NUR ---
SHIFT ASSESSMENT COMPLTED. PT CARE ASSUMED, MONITORS ON AND WORKING. VITALS STABLE, PT AWAKE AND ALERT. NO SIGNS/SYMPTOMS OF PAIN OR DISCOMFORT NOTED AT THIS TIME. WILL CONTINUE TO OBSERVE.
--- NOTE | 2018-12-22 09:00 | NUR ---
PT TURNED AND REPOSITIONED FOR COMFORT, NO SIGNS/SYMPTOMS OF PAIN OR DISCOMFORT NOTED AT THIS TIME. CALL LIGHT WITHIN REACH. WILL CONTINUE TO OBSERVE.
--- NOTE | 2018-12-22 09:13 | NUR ---
NUTRITION F/U CHART REVIEWED. PT EXTUBATED, AWAITING SPEECH THERAPY. WILL PROVIDE DIET PER SPEECH REC'S, MONITOR PT PROGRESS. RD FOLLOWING
--- NOTE | 2018-12-22 11:00 | NUR ---
PT TURNED AND REPOSITIONED, ST AT BEDSIDE FOR SWALLOW EVAL. PUREED DIET AND THIN LIQUIDS RECOMMENDED PER ST AT THIS TIME. DIET ORDERS PUT IN. ORDERS REC'D TO TRANSFER PT TO FLOOR WHEN ROOM BECOMES AVAILABLE. SEE FLOW SHEET FOR FURTHER DETIALS. WILL CONTINUE TO OBSERVE.
--- NOTE | 2018-12-22 13:30 | NUR ---
PT RECIEVED FROM ICU, FAMILY AT BEDSIDE. RESPIRATIONS RAPID AND SHALLOW. RASPY COUGH NOTED. O2 @ 2L NC. PT IS ALERT, RESPONDS APPROPRIATELY TO STAFF AND FAMILY. SALINE LOC TO LEFT FOREARM INTACT. RIGHT SUBCLAVIAN INTACT WITH VANCOMYCIN PIGGY BACK INFUSING. F/C PATENT TO GRAVITY, DRAINING BLOOD TINGED URINE. DENIES PAIN. HOB ELEVATED. CL WITHIN REACH. ENCOURAGED TO CALL WITH NEEDS. WILL CONTINUE TO MONITOR.
--- NOTE | 2018-12-22 15:23 | NUR ---
PT RESTING QUIETLY IN BED. RESP REMAIN SHALLOW O2 @ 2L REMAINS IN PLACE. RESPONDS TO STAFF, DENYING NEEDS AT THIS TIME. CL WITHIN REACH. WILL CONTINUE TO MONITOR.
--- NOTE | 2018-12-22 15:50 | NUR ---
STAFF CALLED TO PT ROOM. PT FOUND COLD AND CLAMMY. RESP SHALLOW, 30-34 BPM. PT LESS RESPONSIVE. BLOOD SUGAR 100. BP 148/88 TEMP 98.2, PULSE 80. O2 SAT 88-84% WITH 2L NC. CONTACTED RESPIRATORY FOR BREATHING TREATMENT. 1607 HIFLO O2 PLACED AT 7L 02 SATS REMAIN 88-92%. 1610 O2 SAT 92% ABG'S OBTAINED PER RT. 1620 RT RETURNED TO ROOM WITH ORDERS TO INITIATE BIPAP AT 12/5 @ 40%. 1635 PT MORE ALERT WITH BIPAP IN PLACE, ATTEMPTING TO COMMUNICATE WITH STAFF. [address] DOWLING OF DETERIORATION AND STATUS OF ABG'S. NEW ORDERS NOTED WITH TRANSFER ORDERS TO TRANSFER TO ICU. INFORMED PT AND FAMILY OF TRANSFER ORDER. 2501 OBTAINED BED IN ICU, TRANSFERRED VIA BED TO ICU 0670
--- NOTE | 2018-12-22 19:14 | NUR ---
REPORT RECEIVED, CARE ASSUMED. INITIAL ASSESSMENT COMPLETED. PT IS SITTING UP IN BED. PT IS CONFUSED TO SITUATION. NO SIGNS OF ACUTE DISTRESS. WILL CONTINUE TO MONITOR.
--- NOTE | 2018-12-22 21:14 | NUR ---
PT IS SITTING UP IN BED STILL. FAMILY AT BEDSIDE. BP ELEVATED, PRN MEDICATIONS GIVEN, SEE MAR. NO SIGNS OF ACUTE DISTRESS. WILL CONTINUE TO MONITOR.
--- NOTE | 2018-12-22 23:07 | NUR ---
REASSESSMENT COMPLETED, SEE FLOWSHEET. PT IS RESTING IN BED WITH EYES CLOSED. NO SIGNS OF ACUTE DISTRESS. NO ACUTE CHANGES NOTED. WILL CONTINUE TO MONITOR.
[2018-12-23] VITALS (24 sets, daily range): BP systolic 99–182; BP diastolic 51–92
--- NOTE | 2018-12-23 01:07 | NUR ---
PT IS RESTING IN BED AT THIS TIME. NO ACUTE CHANGES NOTED. NO SIGNS OF ACUTE DISTRESS. WILL CONTINUE TO MONITOR.
--- NOTE | 2018-12-23 03:14 | NUR ---
REASSESSMENT COMPLETED, SEE FLOWSHEET. PT IS RESTING IN BED ON THE BIPAP AT THIS TIME. PT SEEMS CONFUSED TO TIME, PLACE, AND SITUATION AT THIS TIME. TRIES TO PULL THE BIPAP MASK OFF, ASKS IF SHE CAN GET IN THE FLOOR, ETC. NO OTHER CHAGNES NOTED IN PT. WILL CONTINUE TO MONITOR CLOSELY.
[2018-12-23 04:18] LABS: BASOPHILS 0.1 % (0-2); EOSINOPHILS 0.7 % (0-7); HEMATOCRIT 28.4 % (36.0-48.0); HEMOGLOBIN 9.3 g/dL (12-16); LYMPHOCYTES 11.2 % (15-50); MCH 30.3 pg (26.0-34.0); MCHC 32.7 g/dL (31.0-37.0); MCV 92.5 fL (80.0-100.0); MEAN PLATELET VOLUME 9.9 fL (7.4-10.4); MONOCYTES 4.1 % (2-11); NEUTROPHILS 82.9 % (40-80); PLATELET COUNT 212 10x3/uL (130-400); RBC 3.07 10x6/uL (4.00-5.40); RDW 15.1 % (11.5-14.5); WBC 15.3 10x3/uL (4.8-10.8)
[2018-12-23 04:24] LABS: ANION GAP 17.8 mmol/L (8-16); CALCIUM 7.2 mg/dL (8.5-10.1); CARBON DIOXIDE 23.8 mmol/L (21.0-32.0); CREATININE - SERUM 0.8 mg/dL (0.6-1.3); POTASSIUM - SERUM 3.6 mmol/L (3.5-5.1)
--- NOTE | 2018-12-23 05:14 | NUR ---
PT IS RESTING IN BED ON THE BIPAP AT THIS TIME. FULL BED BATH AND LINEN CHANGE COMPLETED. NO SIGNS OF ACUTE DISTRESS. WILL CONTINUE TO MONITOR.
--- NOTE | 2018-12-23 07:00 | NUR ---
SHIFT ASSESSMENT COMPLETED, PT CARE ASSUMED, MONITORS ON AND WORKING, VITALS STABLE, PT AWAKE AND ALERT, ON BIPAP. NO SIGNS/SYMPTOMS OF PAIN OR DISCOMFORT NOTED. CALL LIGHT WITHIN REACH WILL CONTINUE TO OBSERVE.
--- NOTE | 2018-12-23 09:00 | NUR ---
PT TURNED AND REPOSITIONED FOR COMFORT PT SITTING UP IN BED FAMILY AT BEDSIDE, NO SIGNS/SYMPTOMS OF PAIN OR DISCOMFORT NOTED AT THIS TIME. WILL CONTINUE TO OBSERVE.
--- NOTE | 2018-12-23 11:00 | NUR ---
PT SITTING UP IN BED EATING LUNCH, FAMILY AT BEDSIDE. NO SIGNS/SYMPTOMS OF PAIN OR DISCOMFORT. PT O2 SATS ABOVE 96% ON 2L NC, MONITORS ON AND WORKING, VITALS STABLE, SEE FLOW SHEET FOR FURTHER DETIALS. WILL CONTINUE TO OBSERVE.
--- NOTE | 2018-12-23 13:00 | NUR ---
PT CLEANED FROM LARGE BM, COMPLETE LINEN CHANGE DONE AT THIS TIME. MONIOTRS ON AND WORKING, VITALS STABLE, CALL LIGHT WITHIN REACH, WILL CONTINUE TO OBSERVE.
--- NOTE | 2018-12-23 15:00 | NUR ---
NO CHANGES, SEE FLOW SHEET FOR FURTHER DETAILS. MONITORS ON AND WORKING, VITALS STABLE. CALL LIGHT WITHIN REACH, WILL CONTINUE TO OBSERVE.
--- NOTE | 2018-12-23 17:00 | NUR ---
NO CHANGES, MONITORS ON AND WORKING. VITALS STABLE, CALL LIGHT WITHIN REACH WILL CONTINUE TO OBSERVE.
--- NOTE | 2018-12-23 20:26 | MORECARE ---
CASE MANAGEMENT DISCHARGE SUMMARY PATIENT: LOBO HILARIO UNIT: [id number] ADM DATE: 12/20/18 AGE: 88 : 30 SEX: F ROOM/BED: D.2314 AUTHOR: SAVI RAMIREZ PHYSICIAN: REFERRING PHYSICIAN: CALLY DOWLING MD DATE OF SERVICE: 12/23/18 Discharge Plan Patient Name: [facility]OBO HILARIO [facility] [facility] 1930 Planned Disposition: Anticipated Discharge Date: Discharge Date: Expected LOS: Initial Reviewer: [email or web address] Initial Review Date: 12/20/2018 Generated: 12/23/18 9:26 pm Patient Name: LOBO HILARIO Page [phone] at 2025 All edits/amendments must be made on the electronic document DICTATION DATE: 12/23/182025 DIRECTOR RECREATION: SPIKE 12/23/182025 RPT#: [id number] DC DATE: STATUS: ADM IN [facility] [address] [place] [address] END OF REPORT
--- NOTE | 2018-12-23 20:33 | MORECARE ---
CASE MANAGEMENT DISCHARGE SUMMARY PATIENT: LOBO HILARIO UNIT: [id number] ADM DATE: 12/20/18 AGE: 88 : 30 SEX: F ROOM/BED: D.2314 AUTHOR: SAVI RAMIREZ PHYSICIAN: REFERRING PHYSICIAN: CALLY DOWLING MD DATE OF SERVICE: 12/23/18 Discharge Plan Patient Name: LOBO HILARIO Facility: [facility]:[place] : 1930 Planned Disposition: Anticipated Discharge Date: Discharge Date: Expected LOS: Initial Reviewer: [email or web address] Initial Review Date: 12/20/2018 Generated: 12/23/18 9:33 pm Comments DCP- Discharge Planning Updated by [email or web address]: Fanny Bush on 12/23/18 7:[address] CM attempted to complete d/c planning assessment. Patient wasn't able to answer questions appropriately. No family available at this time. CM will try to get in touch with family. CM will continue to follow and assist as needed with discharge planning / needs. Last DP export: 12/23/18 7:26 p Patient Name: LOBO HILARIO Page [phone] at 2032 All edits/amendments must be made on the electronic document DICTATION DATE: 12/23/182032 REAL ESTATE SUBAGENT: SPIKE 12/23/182032 RPT#: [id number] DC DATE: STATUS: ADM IN [facility] [address] [place] [address] END OF REPORT
[2018-12-24] VITALS (17 sets, daily range): BP systolic 103–140; BP diastolic 51–86
[2018-12-24 05:50] LABS: HEMATOCRIT 29.7 % (36.0-48.0); HEMOGLOBIN 9.8 g/dL (12-16); MCH 30.5 pg (26.0-34.0); MCV 92.5 fL (80.0-100.0); MEAN PLATELET VOLUME 10.1 fL (7.4-10.4); PLATELET COUNT 232 10x3/uL (130-400); RBC 3.21 10x6/uL (4.00-5.40); RDW 14.9 % (11.5-14.5)
[2018-12-24 06:04] LABS: ANION GAP 12.6 mmol/L (8-16); CALCIUM 7.6 mg/dL (8.5-10.1); CARBON DIOXIDE 28.4 mmol/L (21.0-32.0); CREATININE - SERUM 0.9 mg/dL (0.6-1.3)
[2018-12-24 06:35] LABS: WBC 10.6 10x3/uL (4.8-10.8)
--- NOTE | 2018-12-24 07:00 | NUR ---
SHIFT ASSESSMENT COMPLETED, PT CARE ASSUMED. MONITORS ON AND WORKING. VITALS STABLE, PT AWAKE AND ALERT, NO SIGNS/SYMPTOMS OF PAIN OR DISCOMFORT NOTED AT THIS TIME. SEE FLOW SHEET FOR FURTHER DETAILS. WILL CONTINUE TO OBSERVE.
[2018-12-24 08:45] LABS: EOSINOPHILS 3 % (0-7); LYMPHOCYTES 19 % (15-50); MONOCYTES 8 % (2-11); NEUTROPHILS 67 % (40-80); PLATELET ESTIMATE NORMAL
--- NOTE | 2018-12-24 09:00 | NUR ---
PT TURNED AND REPOSITIONED FOR COMFORT, FAMILY AT BEDSIDE UPDATE PROVIDED, NO SIGNS/SYMPTOMS OF DISTRESS NOTED, CALL LIGHT WITHIN REACH, WILL CONTINUE TO OBSERVE.
--- NOTE | 2018-12-24 09:46 | NUR ---
NUTRITION F/U PT WITH VISITOR AT BEDSIDE. PT REPORTS THAT SHE EATS VERY LITTLE BREAKFAST. VISITOR REPORTS INTAKE OTHER MEALS HAS BEEN GOOD. WILL CONTINUE TO PROVIDE DIET, MONITOR INTAKE. RD FOLLOWING
--- NOTE | 2018-12-24 11:00 | NUR ---
NO CHANGES, SEE FLOW SHEET FOR FURTHER DETAILS. WILL CONTINUE TO OBESRVE.
--- NOTE | 2018-12-24 16:56 | MORECARE ---
CASE MANAGEMENT DISCHARGE SUMMARY PATIENT: LOBO HILARIO UNIT: [id number] ADM DATE: 12/20/18 AGE: 88 : 30 SEX: F ROOM/BED: D.2314 AUTHOR: SAVI RAMIREZ PHYSICIAN: REFERRING PHYSICIAN: CALYL DOWLING MD DATE OF SERVICE: 12/24/18 Discharge Plan Patient Name: LOBO HILARIO Facility: [facility]:[place] : 1930 Planned Disposition: Anticipated Discharge Date: Discharge Date: Expected LOS: Initial Reviewer: [email or web address] Initial Review Date: 12/24/2018 Generated: 12/24/18 5:55 pm Comments DCP- Discharge Planning Updated by [email or web address]: Fanny Bush on 12/23/18 7:[address] CM attempted to complete d/c planning assessment. Patient wasn't able to answer questions appropriately. No family available at this time. CM will try to get in touch with family. CM will continue to follow and assist as needed with discharge planning / needs. Last DP export: 12/23/18 7:33 p Patient Name: LOBO HILARIO Page [id number] at 1656 All edits/amendments must be made on the electronic document DICTATION DATE: 12/24/181654 DRYWALL APPLICATOR: SPIKE 12/24/181654 RPT#: [id number] DC DATE: STATUS: ADM IN [facility] [address] [place] [address] END OF REPORT
--- NOTE | 2018-12-24 17:03 | MORECARE ---
CASE MANAGEMENT DISCHARGE SUMMARY PATIENT: LOBO HILARIO UNIT: [id number] ADM DATE: 12/20/18 AGE: 88 : 30 SEX: F ROOM/BED: D.2314 AUTHOR: SAVI RAMIREZ PHYSICIAN: REFERRING PHYSICIAN: CALLY DOWLING MD DATE OF SERVICE: 12/24/18 Discharge Plan Patient Name: LOBO HILARIO Facility: [facility]:[place] : 1930 Planned Disposition: Anticipated Discharge Date: Discharge Date: Expected LOS: Initial Reviewer: [email or web address] Initial Review Date: 12/24/2018 Generated: 12/24/18 6:03 pm Comments DCP- Discharge Planning Updated by [email or web address]: Fanny Bush on 12/23/18 7:[address] CM attempted to complete d/c planning assessment. Patient wasn't able to answer questions appropriately. No family available at this time. CM will try to get in touch with family. CM will continue to follow and assist as needed with discharge planning / needs. DCPIA - Discharge Planning Initial Assessment Updated by [email or web address]: Fanny Bush on 12/24/18 4:58 pm * Is the patient Alert and Oriented? Yes * How many steps to enter\exit or inside your home? * PCP * Pharmacy [facility] * Preadmission Environment Home with Family * ADLs Independent * Other Equipment CANE,WALKER, WALKER WITH SEAT, WHEELCHAIR * List name and contact numbers for known caregivers / representatives who currently or will assist patient after discharge: JOSE ELIAS HAAS - SON- [phone] MARYSE HAAS -[id number]- [phone] * Verbal permission to speak to the caregivers and representatives has been obtained from the patient. Yes * Community resources currently utilized None * Please name any agencies selected above. PREVIOUSLY HAS HAD [facility] [place] * Additional services required to return to the preadmission environment? No * Can the patient safely return to the preadmission environment? Yes * Has this patient been hospitalized within the prior 30 days at any hospital? No Last DP export: 12/24/18 3:55 p Patient Name: LOBO HILARIO Page [phone] at 1703 All edits/amendments must be made on the electronic document DICTATION DATE: 12/24/181701 STITCHING MACHINE FEEDER OR OFFBEARER: SPIKE 12/24/181701 RPT#: [id number] DC DATE: STATUS: ADM IN [facility] [address] [place] [address] END OF REPORT
--- NOTE | 2018-12-24 17:11 | MORECARE ---
CASE MANAGEMENT DISCHARGE SUMMARY PATIENT: LOBO HILARIO UNIT: [id number] ADM DATE: 12/20/18 AGE: 88 : 30 SEX: F ROOM/BED: D.2314 AUTHOR: SAVI RAMIREZ PHYSICIAN: REFERRING PHYSICIAN: CALLY DOWLING MD DATE OF SERVICE: 12/24/18 Discharge Plan Patient Name: LOBO HILARIO Facility: [facility]:[place] : 1930 Planned Disposition: Anticipated Discharge Date: Discharge Date: Expected LOS: Initial Reviewer: [email or web address] Initial Review Date: 12/24/2018 Generated: 12/24/18 6:10 pm Comments DCP- Discharge Planning Updated by [email or web address]: Fanny Bush on 12/24/18 4:[address] Patient Name: LOBO HILARIO Admission Status: ER Accout number: [id number] Admission Date: 12-20-2018 : 1930 Admission Diagnosis:PNEUMONIA, UNSPECIFIED ORGANISM Attending: CALLY DOWLING Current LOS: 4 Anticipated DC Date: Planned Disposition: Primary Insurance: MEDICARE A & B Discharge Planning Comments: CM met with patient, son (Dhruv) and dyylotau-b-cor (Antoinette) at bedside after obtaining verbal consent. Patient lives at her home with family. Patient plans to return to her home upon discharge. Patient may require rehab and need home health services. Family stated that they had previously used [facility] out of [place]. CM will continue to follow and assist as needed with discharge planning/ needs. Airplane Charter Clerk: Fanny Bush DCP- Discharge Planning Updated by [email or web address]: Fanny Bush on 12/23/18 7:[address] CM attempted to complete d/c planning assessment. Patient wasn't able to answer questions appropriately. No family available at this time. CM will try to get in touch with family. CM will continue to follow and assist as needed with discharge planning / needs. DCPIA - Discharge Planning Initial Assessment Updated by [email or web address]: Fanny Bush on 12/24/18 4:58 pm * Is the patient Alert and Oriented? Yes * How many steps to enter\exit or inside your home? * PCP * Pharmacy [facility] * Preadmission Environment Home with Family * ADLs Independent * Other Equipment CANE,WALKER, WALKER WITH SEAT, WHEELCHAIR * List name and contact numbers for known caregivers / representatives who currently or will assist patient after discharge: DHRUV HAAS - SON- [phone] ANTOINETTE HAAS -[id number]-N-GYY- [phone] * Verbal permission to speak to the caregivers and representatives has been obtained from the patient. Yes * Community resources currently utilized None * Please name any agencies selected above. PREVIOUSLY HAS HAD [facility] [place] * Additional services required to return to the preadmission environment? No * Can the patient safely return to the preadmission environment? Yes * Has this patient been hospitalized within the prior 30 days at any hospital? No Last DP export: 12/24/18 4:03 p Patient Name: LOOB HILARIO Page [phone] at 1711 All edits/amendments must be made on the electronic document DICTATION DATE: 12/24/181709 BURR BENCH OPERATOR: SPIKE 12/24/181709 RPT#: [id number] DC DATE: STATUS: ADM IN [facility] [address] [place] [address] END OF REPORT
--- NOTE | 2018-12-24 18:12 | NUR ---
PATIENT ARRIVED TO THE FLOOR VIA BED WITH PORTABLE O2, ACCOMPANIED BY ICU STAFF. PATIENT HAS RED BUTTOCKS, DRESSING TO RIGHT GROIN REMOVED, AND NO S/S OF HEMATOMA. BANDAIDE TO FOREHEAD REMOVED, SMALL BROWNISH RAISED AREA NOTED. SCATTERED BRUISING NOTED TO EXTREMITIES. O2 AT 4 LPM HIGH FLOW APPLIED TO PATIENT FROM THE WALL, SUCTION WITH YANKER AT BEDSIDE. POSITIONED SUPINE, MORROW TO BSG, STAT LOCK IN PLACE TO RIGHT UPPER THIGH. RIGHT CHEST CENTRAL LINE WITH CDI DRESSING.
--- NOTE | 2018-12-24 19:50 | NUR ---
LYING IN BED COUGHING LOUDLY. HAS SUCTION YAUNKER IN BED WITH HER. RESP LABORED AT TIMES AND IRREG. O2 @ 4L/HFC. SPEECH GARBLED AND DIFF TO UNDERSTAND AT TIMES. CONFUSED TO TIME AND SITUATION. BBS COARSE WITH WHEEZES. HAS LOOSE COUGH BUT HASNT SEEN SPUTUM. MORROW CATH PATENT AND DRAINING CLOUDY YELLOW URINE. GEN WEAKNESS NOTED. BRUISES NOTED TO BUE AND BLE. TLSC NOTED TO RT CHEST. SALINE LOCK ALSO NOTED TO LT FOREARM/AC. DENIES PAIN. SR ELEVATED X2. CL IN REACH.
--- NOTE | 2018-12-24 23:46 | NUR ---
HASNT SLEPT MUCH DUE TO FREQUENT COUGHING. RT IN ROOM AT THIS TIME.
[2018-12-25 00:52] VITALS: BP 150/59
[2018-12-25 04:00] VITALS: BP 171/93
--- NOTE | 2018-12-25 07:10 | NUR ---
INITIAL ROUNDING ON THE PATIENT, SHE IS AWAKE, ALERT, AND CONFUSED. FAMILY REPORTS THE PATIENT HAS "BEEN SEEING THINGS" AND THIS IS NEW, THAT IT COMES AND GOES. PATIENT REOPRPTS HER MOUTH IS BURNING AND IS SORE. SON AT THE BEDSIDE. SUCTION AT BEDSIDE, YONKER IN PATIENTS HAND. O2 AT 3.5 LPM VIA NC IN PLACE
[2018-12-25 08:50] VITALS: BP 157/58
[2018-12-25 12:32] LABS: ANION GAP 9.7 mmol/L (8-16); CALCIUM 7.4 mg/dL (8.5-10.1); CARBON DIOXIDE 34.5 mmol/L (21.0-32.0); CREATININE - SERUM 0.9 mg/dL (0.6-1.3); POTASSIUM - SERUM 3.2 mmol/L (3.5-5.1)
--- NOTE | 2018-12-25 19:15 | NUR ---
RECEIVED PT. SITTING UP IN BED EYES CLOSED RESTING. RR EVEN AND UNLABORED. YONKER AND CALL LIGHT WITHIN REACH. CONTINUES ON 3.5L VIA NC. EASILY AROUSED WITH VERBAL STIMULI. DENIES ANY NEEDS OR PAIN. FALL PRECAUTIONS IN PLACE. WILL CONTINUE TO MONITOR
[2018-12-25 20:17] VITALS: BP 150/77
[2018-12-25 22:33] VITALS: BP 154/58
[2018-12-26 00:42] VITALS: BP 147/52
--- NOTE | 2018-12-26 01:38 | NUR ---
LYING IN BED ON RIGHT SIDE EYES CLOSED RESTING. APPROPRIATE RISE AND FALL OF CHEST. CONTINUES ON 3.5L VIA NC. CALL LIGHT WITHIN REACH, FALL PRECAUTIONS IN PLACE. WILL CONTINUE TO MONITOR
--- NOTE | 2018-12-26 02:30 | NUR ---
PT RESTING QUIETLY, EYES CLOSED. NO DISTRESS NOTED. AGREE WITH AUTOMOTIVE AIRCONDITIONING MECHANIC'S ASSESSMENT. CONTINUE WITH PLAN OF CARE.
[2018-12-26 05:10] VITALS: BP 120/57
--- NOTE | 2018-12-26 05:24 | NUR ---
SITTING UP IN BED EYES OPEN ALERT. DENIES ANY PAIN OR NEEDS. CALL LIGHT, WATER AND YONKER WITHIN REACH, FALL PRECAUTIONS IN PLACE. CONTINUES ON 3.5L VIA NC. RR EVEN AND UNLABORED. WILL CONTINUE TO MONITOR
--- NOTE | 2018-12-26 07:30 | NUR ---
ASSESSMENT COMPLETE. R TLSC PATENT. SL TO L FA. DRESSING TO LEFT FA. O2 3.5L NC IN USE. REDNESS NOTED TO BUTTOCKS. MORROW PATENT DRAINING YELLOW URINE. INCONT OF BOWEL. DISORIENTED TO TIME,PLACE, AND SITUATION.
[2018-12-26 07:35] LABS: ANION GAP 15.5 mmol/L (8-16); CALCIUM 7.9 mg/dL (8.5-10.1); POTASSIUM - SERUM 3.5 mmol/L (3.5-5.1)
--- NOTE | 2018-12-26 10:15 | NUR ---
DR DOWLING BY TO SEE PATIENT.
--- NOTE | 2018-12-26 14:00 | NUR ---
INCONT OF BOWEL. PATIENT CLEANED AND LINENS CHANGED. REPOSITIONED IN BED FOR COMFORT. CALL LIGHT WITHIN REACH.
--- NOTE | 2018-12-26 18:25 | NUR ---
RESTING QUIETLY IN BED. NO CHANGES NOTED.
[2018-12-26 18:55] VITALS: BP 152/43
--- NOTE | 2018-12-26 19:20 | NUR ---
PT IS RESTNG IN BED WITH EYES OPEN. ALERT AND ORIENTED X 3. DENIES ACUTE PAIN OR DISCOMFORT AT THIS TIME. PT IS VERY MARSHALL. IV INFUSING TO RIGHT TL WITHOUT DIFFICULTY. MORROW CATH PATENT AND DRAINING TO A GRAVITY BAG. SR'S ARE UP X 3 IN BED. CALL LIGHT AND BEDSIDE TABLE ARE WITHIN EASY REACH.
[2018-12-26 20:00] VITALS: BP 169/73
--- NOTE | 2018-12-26 22:16 | NUR ---
PT IS RESTING QUIETLY IN BED WITH EYES CLOSED. RESPS ARE EVEN AND UNLABORED. NO ACUTE DISTRESS NOTED.
[2018-12-27] VITALS: BP 151/67
--- NOTE | 2018-12-27 01:44 | NUR ---
RESTING IN BED WITH EYES CLOSED.
--- NOTE | 2018-12-27 02:04 | NUR ---
I AGREE WITH THE CHILD STUDY TEAM DIRECTOR ASSESSMENT THIS SHIFT.
[2018-12-27 04:00] VITALS: BP 106/61
--- NOTE | 2018-12-27 04:30 | NUR ---
PT IS RESTING QUIETLY IN BED WITH EYES CLOSED. NO DISTRESS NOTED.
[2018-12-27 06:14] LABS: ANION GAP 13.7 mmol/L (8-16); CALCIUM 7.8 mg/dL (8.5-10.1); CREATININE - SERUM 2.3 mg/dL (0.6-1.3); POTASSIUM - SERUM 3.7 mmol/L (3.5-5.1)
--- NOTE | 2018-12-27 07:35 | NUR ---
ASSESSMENT COMPLETE. R TLSC PATENT. O2 3.5L NC IN USE. DISORIENTED TO TIME,PLACE AND SITUATION. MORROW PATENT DRAINING YELLOW URINE. INCONT OF BOWEL.
[2018-12-27 09:10] VITALS: BP 150/61
--- NOTE | 2018-12-27 15:06 | NUR ---
VISITING WITH GRANDDAUGHTER. DENIES ANY NEEDS AT THIS TIME.
--- NOTE | 2018-12-27 18:15 | NUR ---
VISITING WITH FAMILY.
[2018-12-27 19:35] VITALS: BP 144/57
--- NOTE | 2018-12-27 20:15 | NUR ---
FAMILY MEMBERS [place] ARE CONCERNED ABOUT PT NOT TAKING MEDS PRESCRIBED ELSEWHERE. DR LUCIANA CONNELL. THEY WANTED PROPANALOL TAKEN AT HS. IT IS BEING TAKEN IN THE AM. HE STATED TO LEAVE IT IS BECAUSE THE INTEGRATION SOFTWARE ENGINEER WAS TAKING CARE OF IT. THE OTHER MED WAS TRUSOPT EYE DROP. IT WAS ORDERED, BUT THE RESIDENTIAL LEASING MANAGER STATED SHE WAS UNABLE TO OBTAIN THIS MED FROM THE PHARMACY AT NIGHT. IT WILL START IN AM AFTER PHARMACY ARRIVES.
[2018-12-27 20:23] VITALS: BP 107/59
--- NOTE | 2018-12-27 22:25 | NUR ---
PT IS RESTING QUIETLY IN BED WITH EYES CLOSED. RESPS ARE EVEN AND UNLABORED. NO ACUTE DISTRESS NOTED.
[2018-12-28] VITALS: BP 170/59
--- NOTE | 2018-12-28 02:56 | NUR ---
I AGREE WITH THE FLIGHT OPERATIONS ENGINEER ASSESSMENT THIS SHIFT.
[2018-12-28 05:51] VITALS: BP 174/64
--- NOTE | 2018-12-28 06:10 | NUR ---
PT INC. OF A [facility]IUM BM. INC. CARE GIVEN. PT DENIED ANY OTHER NEEDS EXCEPT FOR A NEW ICEWATER. ICEWATER GIVEN TO PT.
--- NOTE | 2018-12-28 08:00 | NUR ---
AWAKE AND ALERT. ORIENTED X3. NO C/O AT THIS TIME. BREAKFAST SERVED IN ROOM. LUNGS HAVE CRACKLES AND WHEEZES THROUGHOUT LUNG MCDONNELL, NON PRODUCTIVE COUGH NOTED. SKIN IS INTACT WITHOUT REDNESS EXCEPT BUTTOCKS ARE VERY REDDENED. WILL MONNITOR. RIGHT SUBCLAVIAN IS PATENT WITHOUT REDNESS AT INSERTION SITE. DENIES NEEDS.
[2018-12-28 08:44] VITALS: BP 176/62
--- NOTE | 2018-12-28 09:45 | NUR ---
ATE MOST OF BREAKFAST. INCONTINENT OF SOFT SEMI FORMED STOOL. SKIN CARE PER STAFF. REPOSITIONED FOR COMFORT.
--- NOTE | 2018-12-28 10:00 | NUR ---
SPOKE WITH DR. CHINN. MADRIGAL TO D/C ANTI BIOTICS.
[2018-12-28 13:00] VITALS: BP 112/73
[2018-12-28 15:57] VITALS: BP 146/60
[2018-12-28 20:00] VITALS: BP 159/65
--- NOTE | 2018-12-28 20:56 | NUR ---
REST IN BED, DENIES NEEDS THIS TIME, CALL LIGHT IN REACH.
[2018-12-29] VITALS: BP 152/65
--- NOTE | 2018-12-29 04:09 | NUR ---
REST QUIETLY IN BED, CALL LIGHT IN REACH.
[2018-12-29 04:30] VITALS: BP 167/70
--- NOTE | 2018-12-29 08:24 | NUR ---
AM MEDS GIVEN AT THIS TIME. PT IN BED, EATING BREAKFAST, DENIES ANY NEEDS AT THIS TIME. CALL LIGHT IN REACH,NAD NOTED, WILL CONTINUE TO MONITOR.
[2018-12-29 09:01] VITALS: BP 121/73
--- NOTE | 2018-12-29 11:35 | NUR ---
SPUTTUM SPECIMEN OBTAINED AND TAKEN TO LAB
--- NOTE | 2018-12-29 11:44 | NUR ---
BLOOD SUGAR OF 131, NO COVERAGE NEEDED PER S/S. PT IN BED, DENIES ANY NEED AT THIS TIME. CALL LIGHT IN REACH,NAD NOTED, WILL CONTINUE TO MONITOR.
[2018-12-29 12:08] VITALS: BP 155/66
[2018-12-29 15:26] VITALS: BP 122/56
--- NOTE | 2018-12-29 20:04 | NUR ---
MORROW NOTED AT PRIOR ASSESSMENT WITH SMALL AMOUNT OF DARK URINE
[2018-12-29 20:31] VITALS: BP 135/52
--- NOTE | 2018-12-29 21:26 | NUR ---
DCED IV FROM LEFT AC WITH CATH INTACT APPLIED SMALL 4X4 PRESSURE DRSG
[2018-12-30] VITALS: BP 157/58
[2018-12-30 05:42] VITALS: BP 142/52
--- NOTE | 2018-12-30 07:20 | NUR ---
PT LETHARGIC, AROUSES TO STIMULI, PT OPENS HER EYES AND THEN CLOSES THEM. RESP A LITTLE SHALOW BUT EVEN. RT CVL INFUSING NS AT KVO. MORROW DRAINING DARK CLOUDY CONCENTRATED URINE TO GRAVITY. PT DENIES ANY NEEDS AT THIS TIME. CALL LIGHT IN REACH,NAD NOTED,WILL CONTINUE PLAN OF CARE.
--- NOTE | 2018-12-30 09:20 | NUR ---
Pt is on a pureed diet with 43% average po intake past 2d Observed breakfast and pt is feeding self and tolerating diet Trials of mechanical soft with speech Ensure ordered on all trays RD following
[2018-12-30 09:21] VITALS: BP 147/47
[2018-12-30 10:26] LABS: ANION GAP 10.8 mmol/L (8-16); CARBON DIOXIDE 29.9 mmol/L (21.0-32.0); CREATININE - SERUM 1.6 mg/dL (0.6-1.3); POTASSIUM - SERUM 3.7 mmol/L (3.5-5.1)
--- NOTE | 2018-12-30 10:48 | NUR ---
CALLED DR. DOWLING WITH THE RESULTS FROM ABGS. NEW ORDER TO TURN PT'S O2 TO 2L.
--- NOTE | 2018-12-30 11:50 | NUR ---
BLOOD SUGAR OF 138, NO COVERAGE NEEDED PER S/S. PT UP TO CHAIR, DENIES ANY NEEDS AT THIS TIME. FAMILY AT BEDSIDE, NAD NOTED, WILL CONTINUE TO MONITOR.
[2018-12-30 11:54] LABS: BASOPHILS 0.8 % (0-2); EOSINOPHILS 4.8 % (0-7); HEMATOCRIT 30.7 % (36.0-48.0); HEMOGLOBIN 9.9 g/dL (12-16); IMMATURE GRANULOCYTES 0.4 % (0-5); LYMPHOCYTES 17.9 % (15-50); MCH 30.7 pg (26.0-34.0); MCHC 32.2 g/dL (31.0-37.0); MEAN PLATELET VOLUME 9.6 fL (7.4-10.4); MONOCYTES 6.6 % (2-11); NEUTROPHILS 69.5 % (40-80); PLATELET COUNT 271 10x3/uL (130-400); RBC 3.23 10x6/uL (4.00-5.40); RDW 15.5 % (11.5-14.5); WBC 7.1 10x3/uL (4.8-10.8)
[2018-12-30 13:59] VITALS: BP 114/58
[2018-12-30 17:03] VITALS: BP 163/58
--- NOTE | 2018-12-30 18:50 | NUR ---
LETHARGIC AT THIS TIME LUNGS ARE A LITTLE DEMINISHED BUT CLEAR IN ALL BASES SOME CONJESTION NOTED WITH COUGH AND COUGH CAN BE PRODUCTIVE O2 IS AT 2L/NC SRX2 AND BED IS LOW IV TO RTCVL...DRSG CHANGE WAS TODAY AND ALL WNLREDNESS NOTED TO RT BUTTOCK WITH NO BREAKDOWN.
[2018-12-30 22:14] VITALS: BP 160/88
[2018-12-31 02:28] VITALS: BP 166/61
--- NOTE | 2018-12-31 03:37 | NUR ---
I AGREE WITH ADMINISTRATIVE OFFICE CLERK ASSESSMENT.
--- NOTE | 2018-12-31 04:05 | NUR ---
HAS BEEN AWAKE SOME DURING THE NIGHT ANSWERS SOME QUESTIONS IV CONT TO BE PATENT INFUSING AT A KEEP OPEN RATE. LCTA BUT COUGH REMAINS PRODUCTIVE, SRX2 BED LOW AND CALL LIGHT IN REACH
[2018-12-31 05:40] VITALS: BP 158/57
[2018-12-31 05:52] LABS: BASOPHILS 1.4 % (0-2); EOSINOPHILS 3.1 % (0-7); HEMATOCRIT 28.6 % (36.0-48.0); HEMOGLOBIN 9.2 g/dL (12-16); IMMATURE GRANULOCYTES 0.7 % (0-5); LYMPHOCYTES 17.7 % (15-50); MCH 30.2 pg (26.0-34.0); MCHC 32.2 g/dL (31.0-37.0); MCV 93.8 fL (80.0-100.0); MEAN PLATELET VOLUME 9.9 fL (7.4-10.4); NEUTROPHILS 68.1 % (40-80); PLATELET COUNT 287 10x3/uL (130-400); RBC 3.05 10x6/uL (4.00-5.40); RDW 15.5 % (11.5-14.5); WBC 7.6 10x3/uL (4.8-10.8)
[2018-12-31 05:54] LABS: ANION GAP 9.5 mmol/L (8-16); CARBON DIOXIDE 32.6 mmol/L (21.0-32.0); CREATININE - SERUM 1.6 mg/dL (0.6-1.3)
[2018-12-31 05:57] LABS: POTASSIUM - SERUM 3.1 mmol/L (3.5-5.1)
--- NOTE | 2018-12-31 08:30 | NUR ---
The patient is awake and she is alert. She OHKAY OWINGEH and she is oriented x 2 at this time.
--- NOTE | 2018-12-31 09:41 | OP ---
PATIENT NAME: LOBO HILARIO MEDICAL RECORD: [id number] :30 LOCATION:D.M3 D.1208 ADMISSION DATE:12/20/18 SURGEON: ALEXA ROBLES MD DATE OF OPERATION: 12/20/2018 PREOPERATIVE DIAGNOSES: 1. Acute respiratory failure on the ventilator. 2. Pneumonia. 3. Elevated troponin with acute coronary syndrome. 4. Need for IV access. POSTOPERATIVE DIAGNOSES: 1. Acute respiratory failure on the ventilator. 2. Pneumonia. 3. Elevated troponin with acute coronary syndrome. 4. Need for IV access. PROCEDURE: Right subclavian vein triple-lumen central venous line placement. SURGEON: Alexa Robles MD REPORT OF PROCEDURE: The patient's right chest was prepped and draped in sterile fashion. A total of 3 cc of 1% lidocaine with epinephrine was infused into the surrounding tissues. A needle was used to cannulate the right subclavian vein and a guidewire was advanced with ease. Over this wire, a dilator was placed followed by the triple lumen catheter. The catheter aspirated nonpulsatile dark blood and flushed easily with normal saline. This catheter was sutured into place with 3-0 silk ties and dressed appropriately. COMPLICATIONS: None. CONDITION: Fair. ANESTHESIA: General endotracheal and local. BLOOD LOSS: Minimal. Procedure done at the bedside. TRANSINT:[id number] Voice Confirmation ID: [id number] DOCUMENT ID: [id number] ALEXA ROBLES MD at 0941 CC: [id number] DICTATION DATE: 12/20/18 1158 CAR SEALER: 12/20/18 1234 [place] [address]
[2018-12-31 10:11] VITALS: BP 142/57
--- NOTE | 2018-12-31 10:13 | MORECARE ---
CASE MANAGEMENT DISCHARGE SUMMARY PATIENT: LOBO HILARIO UNIT: [id number] ADM DATE: 12/20/18 AGE: 88 : 30 SEX: F ROOM/BED: D.1208 AUTHOR: SAVI RAMIREZ PHYSICIAN: REFERRING PHYSICIAN: CALLY DOWLING MD DATE OF SERVICE: 12/31/18 Discharge Plan Patient Name: LOBO HILARIO Facility: [facility]:[place] : 1930 Planned Disposition: Anticipated Discharge Date: Discharge Date: Expected LOS: Initial Reviewer: [email or web address] Initial Review Date: 12/24/2018 Generated: 12/31/18 11:12 am Comments DCP- Discharge Planning Updated by [email or web address]: Lima Rodriguez on 12/31/18 9:[address] Patient Name: LOBO HILARIO Admission Status: ER Accout number: [id number] Admission Date: 12-20-2018 : 1930 Admission Diagnosis:PNEUMONIA, UNSPECIFIED ORGANISM Attending: CALLY DOWLING Current LOS: 11 Anticipated DC Date: Planned Disposition: Primary Insurance: MEDICARE A & B Discharge Planning Comments: CM SPOKE WITH PATIENT AND HER DAUGHTER YESTERDAY AFTERNOON ABOUT DC PLANNING/NEEDS. THE DAUGHTER STATED HER BROTHER AND SISTER IN LAW LIVE WITH THE MOTHER AND HELP TAKE CARE OF HER. THE PLAN IS FOR HER TO GO HOME. FAMILY STATED WANTED TO WAIT UNTIL TODAY AND SEE HOW THEIR MOM WAS DOING BEFORE DECIDING IF SHE NEEDS ADDITIONAL SERVICES AT TIME OF DISHARGE. CM WILL MEET WITH PATIENT AND FAMILY AGAIN TODAY AND ASSESS NEED FOR SERVICES. Pipelaying Fitter: Lima Rodriguez DCP- Discharge Planning Updated by [email or web address]: Fanny Bush on 12/24/18 4:[address] Patient Name: LOBO HILARIO Admission Status: ER Accout number: [id number] Admission Date: 12-20-2018 : 1930 Admission Diagnosis:PNEUMONIA, UNSPECIFIED ORGANISM Attending: CALLY DOWLING Current LOS: 4 Anticipated DC Date: Planned Disposition: Primary Insurance: MEDICARE A & B Discharge Planning Comments: CM met with patient, son (Dhruv) and rcjrpdeo-[id number]-ldu (Antoinette) at bedside after obtaining verbal consent. Patient lives at her home with family. Patient plans to return to her home upon discharge. Patient may require rehab and need home health services. Family stated that they had previously used [facility] out of [place]. CM will continue to follow and assist as needed with discharge planning/ needs. Pipelaying Fitter: Fanny Bush DCP- Discharge Planning Updated by [email or web address]: Fanny Bush on 12/23/18 7:[address] CM attempted to complete d/c planning assessment. Patient wasn't able to answer questions appropriately. No family available at this time. CM will try to get in touch with family. CM will continue to follow and assist as needed with discharge planning / needs. DCPIA - Discharge Planning Initial Assessment Updated by [email or web address]: Fanny Bush on 12/24/18 4:58 pm * Is the patient Alert and Oriented? Yes * How many steps to enter\exit or inside your home? * PCP [facility] * Pharmacy [facility] * Preadmission Environment Home with Family * ADLs Independent * Other Equipment CANE,WALKER, WALKER WITH SEAT, WHEELCHAIR * List name and contact numbers for known caregivers / representatives who currently or will assist patient after discharge: DHRUV HAAS - SON- [phone] ANTOINETTE HAAS -[id number]- [phone] * Verbal permission to speak to the caregivers and representatives has been obtained from the patient. Yes * Community resources currently utilized None * Please name any agencies selected above. PREVIOUSLY HAS HAD [facility] - [place] * Additional services required to return to the preadmission environment? No * Can the patient safely return to the preadmission environment? Yes * Has this patient been hospitalized within the prior 30 days at any hospital? No Last DP export: 12/24/18 4:11 p Patient Name: LOBO HILARIO Page 60840 at 1013 All edits/amendments must be made on the electronic document DICTATION DATE: 12/31/18 1012 PLATEMAN: SPIKE 12/31/18 1012 RPT#: [id number] DC DATE: STATUS: ADM IN [facility] [address] [place] [address] END OF REPORT
--- NOTE | 2018-12-31 11:03 | NUR ---
The patient is calm and she is pleasant, denies needs. Speech Thearapy in her room.
--- NOTE | 2018-12-31 11:23 | NUR ---
OT NOTE: PT PERFORMED BED MOB WITH MIN ASSIST; TRANSFERS WITH MOD ASSIST; FEEDING WITH OCCASSIONAL CUES; WASHING HANDS AND FACE WITH SET UP. MAX ASSIST TO [employer] BARNEY AGUILAR OTR/Sumit
--- NOTE | 2018-12-31 14:30 | NUR ---
The patient is showing blood in her urine, this is new to this nurse. Earlier she did have barry colored urine. Called Dr. Araujo, spoke to Emeli, his nurse. Receved new order to change Su cath and reinsert a new su. Also an order for a UA and C&S.
[2018-12-31 14:35] VITALS: BP 137/62
--- NOTE | 2018-12-31 14:57 | NUR ---
Gould cath changed.
--- NOTE | 2018-12-31 15:48 | NUR ---
Rehab Note- Acute INpatient Rehab prescreen order received. The patient is a good inpatient acute rehab candidate. Will accept to [facility] Acute Inpatient Rehab if the patient is in agreeance and when is medically stable and ready for discharge from the acute hospital. Will continue to follow. Thank you for this referral! Adithya Earl RN CLinical Liaison, [facility] Rehab
--- NOTE | 2018-12-31 16:09 | MORECARE ---
CASE MANAGEMENT DISCHARGE SUMMARY PATIENT: LOBO HILARIO UNIT: [id number] ADM DATE: 12/20/18 AGE: 88 : 30 SEX: F ROOM/BED: D.1208 AUTHOR: SAVI RAMIREZ PHYSICIAN: REFERRING PHYSICIAN: CALLY DOWLING MD DATE OF SERVICE: 12/31/18 Discharge Plan Patient Name: LOBO HILARIO Facility: [facility]:[place] : 1930 Planned Disposition: Anticipated Discharge Date: Discharge Date: Expected LOS: Initial Reviewer: [email or web address] Initial Review Date: 12/24/2018 Generated: 12/31/18 5:09 pm Comments DCP- Discharge Planning Updated by [email or web address]: Lima Rodriguez on 12/31/18 3:[address] Patient Name: LOBO HILARIO Admission Status: ER Accout number: [id number] Admission Date: 12-20-2018 : 1930 Admission Diagnosis:PNEUMONIA, UNSPECIFIED ORGANISM Attending: CALLY DOWLING Current LOS: 11 Anticipated DC Date: Planned Disposition: Primary Insurance: MEDICARE A & B Discharge Planning Comments: CM SPOKE WITH YOBANY AT IN PATIENT REHAB AND SHE STATES THEY CAN TAKE PATIENT WHEN SHE IS READY FOR DISCHARGE. CM WILL FOLLOW AND ASSIST NEEDED WITH DC PLANNING/NEEDS. Product Support Manager: Lima Rodriguez DCP- Discharge Planning Updated by [id number]: Lima Rodriguez on 12/31/18 9:[address] Patient Name: LOBO HILARIO Admission Status: ER Accout number: [id number] Admission Date: 12-20-2018 : 1930 Admission Diagnosis:PNEUMONIA, UNSPECIFIED ORGANISM Attending: CALLY DOWLING Current LOS: 11 Anticipated DC Date: Planned Disposition: Primary Insurance: MEDICARE A & B Discharge Planning Comments: CM SPOKE WITH PATIENT AND HER DAUGHTER YESTERDAY AFTERNOON ABOUT DC PLANNING/NEEDS. THE DAUGHTER STATED HER BROTHER AND SISTER IN LAW LIVE WITH THE MOTHER AND HELP TAKE CARE OF HER. THE PLAN IS FOR HER TO GO HOME. FAMILY STATED WANTED TO WAIT UNTIL TODAY AND SEE HOW THEIR MOM WAS DOING BEFORE DECIDING IF SHE NEEDS ADDITIONAL SERVICES AT TIME OF DISHARGE. CM WILL MEET WITH PATIENT AND FAMILY AGAIN TODAY AND ASSESS NEED FOR SERVICES. Product Support Manager: Lima Rodriguez DCP- Discharge Planning Updated by [id number]: Fanny Bush on 12/24/18 4:[address] Patient Name: LOBO HILARIO Admission Status: ER Accout number: [id number] Admission Date: 12-20-2018 : 1930 Admission Diagnosis:PNEUMONIA, UNSPECIFIED ORGANISM Attending: CALLY DOWLING Current LOS: 4 Anticipated DC Date: Planned Disposition: Primary Insurance: MEDICARE A & B Discharge Planning Comments: CM met with patient, son (Dhruv) and oaloejci-v-ftm (Antoinette) at bedside after obtaining verbal consent. Patient lives at her home with family. Patient plans to return to her home upon discharge. Patient may require rehab and need home health services. Family stated that they had previously used [facility] out of [place]. CM will continue to follow and assist as needed with discharge planning/ needs. Product Support Manager: Fanny Bush DCP- Discharge Planning Updated by [email or web address]: Fanny Bush on 12/23/18 7:[address] CM attempted to complete d/c planning assessment. Patient wasn't able to answer questions appropriately. No family available at this time. CM will try to get in touch with family. CM will continue to follow and assist as needed with discharge planning / needs. DCPIA - Discharge Planning Initial Assessment Updated by [email or web address]: Fanny Bush on 12/24/18 4:58 pm * Is the patient Alert and Oriented? Yes * How many steps to enter\exit or inside your home? * PCP * Pharmacy [facility] * Preadmission Environment Home with Family * ADLs Independent * Other Equipment CANE,WALKER, WALKER WITH SEAT, WHEELCHAIR * List name and contact numbers for known caregivers / representatives who currently or will assist patient after discharge: DHRUV HAAS - SON- [phone] ANTOINETTE HAAS -[id number]- [phone] * Verbal permission to speak to the caregivers and representatives has been obtained from the patient. Yes * Community resources currently utilized None * Please name any agencies selected above. PREVIOUSLY HAS HAD [facility] [place] * Additional services required to return to the preadmission environment? No * Can the patient safely return to the preadmission environment? Yes * Has this patient been hospitalized within the prior 30 days at any hospital? No Last DP export: 2/28/19 9:13 a Patient Name: LOBO HILARIO Page [phone] at 1609 All edits/amendments must be made on the electronic document DICTATION DATE: 12/31/181607 DRUG REGULATORY AFFAIRS SPECIALIST: SPIKE 12/31/181607 RPT#: [id number] DC DATE: STATUS: ADM IN [facility] [address] [place] [address] END OF REPORT
[2018-12-31 16:33] LABS: APPEARANCE CLOUDY (CLEAR); COLOR YELLOW (YELLOW); SPECIFIC GRAVITY 1.015 (1.005-1.020)
[2018-12-31 16:34] LABS: BILIRUBIN NEGATIVE (NEGATIVE); GLUCOSE NEGATIVE (NEGATIVE); KETONE NEGATIVE (NEGATIVE); NITRITE NEGATIVE (NEGATIVE); PROTEIN 1+ mg/dL (NEGATIVE); UROBILINOGEN NORMAL (NORMAL)
[2018-12-31 16:35] LABS: BACTERIA FEW /hpf (NONE SEEN); EPITHELIAL CELLS 0-5 /hpf (0-5); RED CELLS - URINE >50 /hpf (0-5); WHITE CELLS - URINE 0-5 /hpf (0-5)
[2018-12-31 17:42] VITALS: BP 120/81
--- NOTE | 2018-12-31 18:00 | NUR ---
Patient is resting easily, she denies any needs.
--- NOTE | 2018-12-31 19:58 | NUR ---
AT REST WITH EYES CLOSED AROUSES SLIGHTLY DURING THE EXAM. IV TO RT CVL DRSG INTACT NO EDEMA OR REDNESS LUNGS CLEAR BUT DEMINISHED SKIN WARM AND DRY SRX2 AND BED LOW CALL LIGHT IS WITH IN REACH AND YONKERS FOR PATIENT TO SELF SUCTION PRODUCTIVE COUGH HAS BEEN PRESENT.
[2018-12-31 20:00] VITALS: BP 167/70
[2019-01-01] VITALS: BP 157/63
--- NOTE | 2019-01-01 02:52 | NUR ---
ASSESSED, PT IS AWAKE AND SITTING UP WITH HOB UP 45DEGREES. O2 AT 2 LITERS PER N/C. NO DISTRESS NOTED.
[2019-01-01 04:00] VITALS: BP 154/61
[2019-01-01 05:36] LABS: ANION GAP 7.8 mmol/L (8-16); CALCIUM 8.1 mg/dL (8.5-10.1); CARBON DIOXIDE 32.9 mmol/L (21.0-32.0); CREATININE - SERUM 1.6 mg/dL (0.6-1.3); POTASSIUM - SERUM 3.7 mmol/L (3.5-5.1)
--- NOTE | 2019-01-01 07:35 | NUR ---
ASSESSMENT COMPLETE. R [facility] PATENT. [place]. O2 2L NC IN USE. COURSE BREATH SOUNDS. PRODUCTIVE COUGH. ALMA JUAREZS. MORROW PATENT DRAINING YELLOW URINE. INCONT OF STOOL. [place]. DENIES ANY NEEDS AT THIS TIME.
[2019-01-01] MEDS ORDERED: Nystatin Oral Susp [ PO (07:50)
[2019-01-01] MEDS ORDERED: PLAVIX75 MG PO (07:51)
[2019-01-01] MEDS ORDERED: FERROUS SULFAT325 MG PO (07:51)
[2019-01-01] MEDS ORDERED: Lovenox INJ SC (07:51)
[2019-01-01] MEDS ORDERED: NORVASC2.5 MG PO (07:51)
[2019-01-01] MEDS ORDERED: ALBUTEROL1.25 MG/3 INH (07:51)
[2019-01-01] MEDS ORDERED: PULMICORT0.5 MG/21 UPD (07:52)
[2019-01-01] MEDS ORDERED: MUCINEX DM ER1 EAC1 PO (07:52)
[2019-01-01] MEDS ORDERED: XALATAN 0.0052.5 ML OP (07:53)
[2019-01-01] MEDS ORDERED: MIRALAX17 GM PO (07:53)
[2019-01-01] MEDS ORDERED: FUROSEMIDE20 MG PO (07:56)
[2019-01-01] MEDS ORDERED: K-TAB10 MEQ PO (07:57)
[2019-01-01 08:00] VITALS: BP 155/55
--- NOTE | 2019-01-01 11:06 | NUR ---
SITTING UP IN CHAIR. COMPLAINING OF HEADACHE. TYLENOL GIVEN. CALL LIGHT WITHIN REACH.
[2019-01-01] MEDS ORDERED: BAYER CHEWABLE81 MG PO (12:39)
[2019-01-01] MEDS ORDERED: PRAVACHOL20 MG PO (12:39)
--- NOTE | 2019-01-01 13:00 | NUR ---
NO CHANGES NOTED AT THIS TIME.
[2019-01-01 13:13] VITALS: BP 155/66
--- NOTE | 2019-01-01 13:56 | NUR ---
Nutrition Follow Up: Pt is very [place] and did not have hearing aids in at the time of RD visit. Spoke with pt's daughter in law who reported that pt has never been a big eater. She said that pt's appetite seems to be improving and she does not like Ensure. RD encouraged pt's family member to make staff aware of any food preferences. Diet: Regular Pureed; Ensure TID PO Intake: 25% meal avg Meds and labs reviewed Rec continue regular diet with WINDOW [place]INTER recs for consistencies. Will d/c Ensure per pt request. RD following.
--- NOTE | 2019-01-01 14:31 | NUR ---
REPORT CALLED TO [facility] ON REHAB. DAUGHTER NOTIFIED OF ROOM NUMBER ON REHAB.
--- NOTE | 2019-01-01 15:12 | NUR ---
DC'D TO REHAB ROOM 1113A VIA WC WITH BELONGINGS.
--- NOTE | 2019-01-01 16:24 | NUR ---
OT NOTE: BED MOB WITH MIN ASSIST AND USE OF HAND RAILS; TRANSFER WITH MOD ASSIST; TOLERATED SITTING UP IN CHAIR GREATER THAN 2 HRS; SIMPLE GROOMING TASKS AND WASHING HANDS AND FACE WITH CLOTH WITH SET UP BARNEY AGUILAR OTR/L
--- NOTE | 2019-01-01 16:48 | MORECARE ---
CASE MANAGEMENT DISCHARGE SUMMARY PATIENT: LOBO HILARIO UNIT: [id number] ADM DATE: 12/20/18 AGE: 88 : 30 SEX: F ROOM/BED: D.1208 AUTHOR: SAVI RAMIREZ PHYSICIAN: REFERRING PHYSICIAN: CALLY DOWLING MD DATE OF SERVICE: 01/01/19 Discharge Plan Patient Name: LOBO HILARIO Facility: [facility]:[place] : 1930 Planned Disposition: Anticipated Discharge Date: Discharge Date: 01/01/2019 Expected LOS: Initial Reviewer: [email or web address] Initial Review Date: 12/24/2018 Generated: 01/01/19 5:47 pm Comments DCP- Discharge Planning Updated by [email or web address]: Lima Rodriguez on 12/31/18 3:[address] Patient Name: LOBO HILARIO Admission Status: ER Accout number: [id number] Admission Date: 12-20-2018 : 1930 Admission Diagnosis:PNEUMONIA, UNSPECIFIED ORGANISM Attending: CALLY DOWLING Current LOS: 11 Anticipated DC Date: Planned Disposition: Primary Insurance: MEDICARE A & B Discharge Planning Comments: CM SPOKE WITH YOBANY AT IN PATIENT REHAB AND SHE STATES THEY CAN TAKE PATIENT WHEN SHE IS READY FOR DISCHARGE. CM WILL FOLLOW AND ASSIST NEEDED WITH DC PLANNING/NEEDS. Twitchell Operator: Lima Rodriguez DCP- Discharge Planning Updated by [id number]: Lima Rodriguez on 12/31/18 9:[address] Patient Name: LOBO HILARIO Admission Status: ER Accout number: [id number] Admission Date: 12-20-2018 : 1930 Admission Diagnosis:PNEUMONIA, UNSPECIFIED ORGANISM Attending: CALLY DOWLING Current LOS: 11 Anticipated DC Date: Planned Disposition: Primary Insurance: MEDICARE A & B Discharge Planning Comments: CM SPOKE WITH PATIENT AND HER DAUGHTER YESTERDAY AFTERNOON ABOUT DC PLANNING/NEEDS. THE DAUGHTER STATED HER BROTHER AND SISTER IN LAW LIVE WITH THE MOTHER AND HELP TAKE CARE OF HER. THE PLAN IS FOR HER TO GO HOME. FAMILY STATED WANTED TO WAIT UNTIL TODAY AND SEE HOW THEIR MOM WAS DOING BEFORE DECIDING IF SHE NEEDS ADDITIONAL SERVICES AT TIME OF DISHARGE. CM WILL MEET WITH PATIENT AND FAMILY AGAIN TODAY AND ASSESS NEED FOR SERVICES. Twitchell Operator: Lima Rodriguez DCP- Discharge Planning Updated by [email or web address]: Fanny Bush on 12/24/18 4:[address] Patient Name: LOBO HILARIO Admission Status: ER Accout number: [id number] Admission Date: 12-20-2018 : 1930 Admission Diagnosis:PNEUMONIA, UNSPECIFIED ORGANISM Attending: CALLY DOWLING Current LOS: 4 Anticipated DC Date: Planned Disposition: Primary Insurance: MEDICARE A & B Discharge Planning Comments: CM met with patient, son (Dhruv) and ygdysnow-p-[id number] (Antoinette) at bedside after obtaining verbal consent. Patient lives at her home with family. Patient plans to return to her home upon discharge. Patient may require rehab and need home health services. Family stated that they had previously used [facility] out of [place]. CM will continue to follow and assist as needed with discharge planning/ needs. Twitchell Operator: Fanny Bush DCP- Discharge Planning Updated by [email or web address]: Fanny Bush on 12/23/18 7:[address] CM attempted to complete d/c planning assessment. Patient wasn't able to answer questions appropriately. No family available at this time. CM will try to get in touch with family. CM will continue to follow and assist as needed with discharge planning / needs. DCPIA - Discharge Planning Initial Assessment Updated by [email or web address]: Fanny Bush on 12/24/18 4:58 pm * Is the patient Alert and Oriented? Yes * How many steps to enter\exit or inside your home? * PCP * Pharmacy [facility] * Preadmission Environment Home with Family * ADLs Independent * Other Equipment CANE,WALKER, WALKER WITH SEAT, WHEELCHAIR * List name and contact numbers for known caregivers / representatives who currently or will assist patient after discharge: DHRUV HAAS - SON- [phone] ANTOINETTE HAAS -HDOWBIUG-Y-BTX- [phone] * Verbal permission to speak to the caregivers and representatives has been obtained from the patient. Yes * Community resources currently utilized None * Please name any agencies selected above. PREVIOUSLY HAS HAD [facility] [place] * Additional services required to return to the preadmission environment? No * Can the patient safely return to the preadmission environment? Yes * Has this patient been hospitalized within the prior 30 days at any hospital? No Last DP export: 12/31/18 3:09 p Patient Name: LOBO HILARIO Page 39846 at 1648 All edits/amendments must be made on the electronic document DICTATION DATE: 01/01/191646 AGRICULTURAL AIRCRAFT PILOT: SPIKE 01/01/191646 RPT#: [id number] DC DATE:01/01/19 STATUS: DIS IN [facility] [address] [place] [address] END OF REPORT
== END 2019-01-01 15:12 | DRG 981 ==
LOC: D.ER 02:27 → D.ICU 06:15 → D.M3 06:15 → D.MS 12-22 13:26 → D.ICU 12-22 17:37 → D.M3 12-24 18:02
PROVIDERS: Emergency Medicine; Family Medicine; Internal Medicine Cardiovascular Disease; ADMIT Family Medicine; ATTEND Family Medicine
PROC: 05H533Z Insertion of Infusion Device into Right Subclavian Vein, Percutaneous Approach (ICD-10-PCS; 2018-12-20)
PROC: B2111ZZ Fluoroscopy of Multiple Coronary Arteries using Low Osmolar Contrast (ICD-10-PCS; 2018-12-20)
PROC: B2151ZZ Fluoroscopy of Left Heart using Low Osmolar Contrast (ICD-10-PCS; 2018-12-20)
PROC: 4A023N7 Measurement of Cardiac Sampling and Pressure, Left Heart, Percutaneous Approach (ICD-10-PCS; 2018-12-20)
PROC: 5A1945Z Respiratory Ventilation, 24-96 Consecutive Hours (ICD-10-PCS; 2018-12-20)
PROC: 02703FZ Dilation of Coronary Artery, One Artery with Three Intraluminal Devices, Percutaneous Approach (ICD-10-PCS; principal; 2018-12-20 11:50)
PROC: 0BH17EZ Insertion of Endotracheal Airway into Trachea, Via Natural or Artificial Opening (ICD-10-PCS; 2018-12-20 11:50)
PROC: 5A09457 Assistance with Respiratory Ventilation, 24-96 Consecutive Hours, Continuous Positive Airway Pressure (ICD-10-PCS; 2018-12-22)
DX: J96.01 Acute respiratory failure with hypoxia (principal); I21.4 Non-ST elevation (NSTEMI) myocardial infarction; J18.9 Pneumonia, unspecified organism; R57.0 Cardiogenic shock; I50.21 Acute systolic (congestive) heart failure; N17.9 Acute kidney failure, unspecified; I25.10 Atherosclerotic heart disease of native coronary artery without angina pectoris; I95.9 Hypotension, unspecified

== ENCOUNTER 2019-01-01 16:17 | Inpatient (IN) | payer MEDICARE ==
[~2019-01-01] VITALS: Ht 152.4 cm; Wt 70.8 kg
--- NOTE | ~2019-01-01 | RHP ---
PATIENT: LOBO HILARIO MEDICAL RECORD: [id number] ACCOUNT: [id number] LOCATION:[facility]1116 : 30 ADMISSION DATE: 01/01/19 REHABILITATION HISTORY AND PHYSICAL EXAMINATION POST ADMISSION PHYSICIAN EXAMINATION DATE OF ADMISSION: 01/01/2019 ADMITTING DIAGNOSIS: Disuse myopathy. HISTORY OF PRESENT ILLNESS: The patient admitted to inpatient rehab for a neurological condition of disuse myopathy. She is an 88-year-old female patient who was brought to the ED with a 1-2 day history of increasing congestion and cough. She had worsening in the Emergency Room. She required emergent intubation secondary to respiratory distress, hypotension, and bradycardia. The patient was placed in the ICU for an extended period of time. She had echocardiograms and other procedures done during the stay including a CT angiogram. The patient had a cardiac cath done and she had successful CHIEF RISK OFFICER and stenting of her circumflex and also her diagonal. She had a couple rapid responses during her stay. She got a history of meningioma, tremors, got a history of diastolic heart failure. She had had some hypertension at times. She was on supplemental O2. She was on no O2 prior to this. Her son and [id number] live with her and she was independent with ADLs and moderately independent with a cane prior to this and hopefully can return back to this. COMORBIDITIES: In this patient include oropharyngeal dysphagia, cough, meningioma, osteoarthritis, macular degeneration, debility, hypertension, elevated troponin, respiratory failure, coronary artery disease, renal insufficiency, hypokalemia, anemia, and pleural effusions. PAST MEDICAL HISTORY: Significant for altered mental status, dementia, glaucoma. She had hearing problems, arthritis, shingles, menopause, meningioma, tremors, osteoarthritis, and macular degeneration. PAST SURGICAL HISTORY: Includes cataracts. ALLERGIES: Please see previous charts. CURRENT MEDICATIONS: Please see previous charts. FAMILY HISTORY: Noncontributory. SOCIAL HISTORY: The patient hopes to return home and get back to her prior level of functioning. REVIEW OF SYSTEMS: GENERAL: Does complain of weakness and fatigue. HEENT: Denies cold, cough, or congestion. CARDIOVASCULAR: Denies chest pain. PHYSICAL EXAMINATION: VITAL SIGNS: Stable, afebrile. GENERAL: Elderly female in no acute distress upon exam. HEENT: Normocephalic and atraumatic. Mucosa moist. NECK: Supple. No lymphadenopathy. HISTORY AND PHYSICAL [id number] LOBO HILARIO LUNGS: Clear at this time. HEART: Has a regular rate and rhythm. ABDOMEN: Benign. EXTREMITIES: No clubbing, cyanosis, or edema. NEUROLOGIC: She did have noted proximal muscle weakness. ASSESSMENT: This is an 88-year-old female patient admitted to the rehab with a working diagnosis of disuse myopathy. The patient has potential to make improvement. We instituted the following multidisciplinary therapies including, but not limited to physical, occupational, respiratory, speech, nutritional services, prosthetics and orthotics. Given her complex medical condition and risk for more complications, rehabilitation services cannot be provided at a low level of care such as residential facility. PLAN: 1. Admit to [facility] for intensive inpatient therapy to include the following disciplines: A. Physical therapy to improve gait, all transfer skills and bed mobility to a modified independent level. B. Occupational therapy to improve activities of daily living to a modified independent level. C. Case management to assist with discharge planning and placement options. D. Nutrition to assist with nutritional needs. E. Rehabilitation nursing to assist in monitoring the patient's underlying medical conditions and to assist with any type of bowel or bladder management. 2. The patient's current medication and medical care will be continued. 3. The patient will be placed on standard fall precautions. 4. The patient's estimated length of stay is approximately 7-10 days. 5. Discuss the patient during care team staff meeting this week. TRANSINT:[id number] Voice Confirmation ID: [id number] DOCUMENT ID: [id number] VIVIENNE notes whether there has been none or any medical/functional change since admission: - No change since pre-admission screen. VIVIENNE attests patient continues to be appropriate for IRF: - Continues to be appropriate. CLEMENTE ROLLINS MD CC: [id number] DICTATION DATE: 01/08/19927 NOZZLE AND SLEEVE WORKER: 01/08/1952 DIS IN 01/05/19 [facility] [address] [place] [address]
[~2019-01-01 16:17] MED LIST changes: +ALBUTEROL1.25 MG/3 INH; +ARICEPT23 MG PO; +BAYER CHEWABLE81 MG PO; +FERROUS SULFAT325 MG PO; +FUROSEMIDE20 MG PO; +Lovenox INJ SC; +MIRALAX17 GM PO; +MUCINEX DM ER1 EAC1 PO; +NORVASC2.5 MG PO; +Nystatin Oral Susp [ PO; +PLAVIX75 MG PO; +PRAVACHOL20 MG PO; +PULMICORT0.5 MG/21 UPD; +TESSALON PERLE100 MG PO; +XALATAN 0.0052.5 ML OP
[2019-01-01 17:32] VITALS: BP 126/68; BMI 30.5
[2019-01-01 21:21] VITALS: BP 151/54
[2019-01-02 04:17] LABS: BASOPHILS 1.7 % (0-2); EOSINOPHILS 4.4 % (0-7); HEMATOCRIT 27.9 % (36.0-48.0); IMMATURE GRANULOCYTES 0.4 % (0-5); LYMPHOCYTES 17.6 % (15-50); MCH 30.6 pg (26.0-34.0); MCHC 32.3 g/dL (31.0-37.0); MCV 94.9 fL (80.0-100.0); MEAN PLATELET VOLUME 9.8 fL (7.4-10.4); MONOCYTES 9.1 % (2-11); NEUTROPHILS 66.8 % (40-80); PLATELET COUNT 274 10x3/uL (130-400); RBC 2.94 10x6/uL (4.00-5.40); RDW 15.2 % (11.5-14.5)
[2019-01-02 04:25] LABS: ANION GAP 9.9 mmol/L (8-16); CALCIUM 7.8 mg/dL (8.5-10.1); CARBON DIOXIDE 32.6 mmol/L (21.0-32.0); CREATININE - SERUM 1.5 mg/dL (0.6-1.3); POTASSIUM - SERUM 3.5 mmol/L (3.5-5.1)
[2019-01-02 13:39] VITALS: Ht 152.4 cm; Wt 70.8 kg
[2019-01-03 08:14] VITALS: BP 182/65
[2019-01-04 08:31] VITALS: BP 176/77
[2019-01-04 20:00] VITALS: BP 154/65
[2019-01-05 08:20] VITALS: BP 126/66
== END 2019-01-05 17:50 | disposition short-term general hospital (02) | DRG 91 ==
LOC: D.REHAB 16:17
PROVIDERS: ADMIT Emergency Medicine; ATTEND Emergency Medicine
DX: G72.89 Other specified myopathies (principal); J96.01 Acute respiratory failure with hypoxia; I50.21 Acute systolic (congestive) heart failure; J18.9 Pneumonia, unspecified organism; I21.4 Non-ST elevation (NSTEMI) myocardial infarction; J90 Pleural effusion, not elsewhere classified; R13.12 Dysphagia, oropharyngeal phase; I11.0 Hypertensive heart disease with heart failure; R05 Cough; I27.20 Pulmonary hypertension, unspecified; R53.81 Other malaise; I25.10 Atherosclerotic heart disease of native coronary artery without angina pectoris; D64.9 Anemia, unspecified; E87.6 Hypokalemia; N28.9 Disorder of kidney and ureter, unspecified; H35.30 Unspecified macular degeneration

== ENCOUNTER 2019-01-05 16:16 | Inpatient (IN) | payer MEDICARE ==
[~2019-01-05] VITALS: Ht 152.4 cm; Wt 70.8 kg
--- NOTE | 2019-01-05 19:42 | NUR ---
I have reviewed this patient and I concur with the Shift Assessment completed by the Licensed Practical Nurse today this shift.
[2019-01-06 04:00] VITALS: BP 143/56; BP 175/98; BMI 30.5
--- NOTE | 2019-01-06 05:54 | NUR ---
PATIENT LUNG SOUNDS WITH CRACALS. LARAGE AMOUNTS OF SPUTIM IN BACK OF THROUGH UNABLE TO COUGH UP. SPOKE WITH RESPTORY STAFF. CALL TO DR CHOWDHURY OPERATIONS RESEARCH MANAGER FOR DR DOWLING NEW ORDERS TO D/C IV FLUIDS, SUCTION PRN, LASIX 40MG IV BID WITH FRIST DOSE NOW. GIVEN , D/C LASIX 20MG PO BID. FAMILY SON AT BEDSIDE AND AGRED WITH ORDERS. PATIENT IS NOTED TO HAVE TRIMMERS, FAMILY STATED THAT SHE IS HAVING AN INCREASE IN TRIMMERS, AND WILL SPEAK WITH DR DOWLING IN AM
[2019-01-06 05:57] LABS: BASOPHILS 0.5 % (0-2); EOSINOPHILS 8.8 % (0-7); HEMATOCRIT 29.9 % (36.0-48.0); HEMOGLOBIN 9.3 g/dL (12-16); IMMATURE GRANULOCYTES 0.2 % (0-5); LYMPHOCYTES 28.6 % (15-50); MCH 29.8 pg (26.0-34.0); MCHC 31.1 g/dL (31.0-37.0); MCV 95.8 fL (80.0-100.0); MEAN PLATELET VOLUME 10.2 fL (7.4-10.4); MONOCYTES 11.1 % (2-11); NEUTROPHILS 50.8 % (40-80); PLATELET COUNT 259 10x3/uL (130-400); RBC 3.12 10x6/uL (4.00-5.40); RDW 15.2 % (11.5-14.5); WBC 4.3 10x3/uL (4.8-10.8)
[2019-01-06 06:07] LABS: ANION GAP 11.4 mmol/L (8-16); CALCIUM 7.6 mg/dL (8.5-10.1); CREATININE - SERUM 1.7 mg/dL (0.6-1.3); POTASSIUM - SERUM 3.4 mmol/L (3.5-5.1)
[2019-01-06 08:17] LABS: APPEARANCE HAZY (CLEAR); BILIRUBIN NEGATIVE (NEGATIVE); COLOR YELLOW (YELLOW); GLUCOSE NEGATIVE (NEGATIVE); KETONE NEGATIVE (NEGATIVE); NITRITE NEGATIVE (NEGATIVE); PROTEIN NEGATIVE (NEGATIVE); UROBILINOGEN NORMAL (NORMAL)
[2019-01-06 08:18] LABS: BACTERIA FEW /hpf (NONE SEEN); WHITE CELLS - URINE 0-5 /hpf (0-5); YEAST >1+ WITH HYPHAE /hpf (NONE SEEN)
--- NOTE | 2019-01-06 08:58 | NUR ---
ALERT AND ORIENTED X2. SLOW TO RESPOND VERBALLY. PUPILS NON REACTIVE TO LIGHT. LUNGS WITH COURSE CRACKLES BILATERALLY. STRONG COUGH. SMALL AMOUNT OF SPUTUM NOTED WITH SUCTION. SKIN INTACT WITHOUT REDNESS. SKIN TEAR NOTED TO LFA, DRSG CHANGED. NO S/SX INFECTION NOTED. DENIES PAIN. DENIES NEEDS. WILL CONTINUE TO MONITOR.
--- NOTE | 2019-01-06 10:27 | NUR ---
MEDS GIVEN CRUSHED IN APPLESAUCE WITH MUCH DIFFICULTY. PT CHOKED EVERY TIME GIVEN SPOON WITH MEDS.
[2019-01-06 10:48] VITALS: Ht 152.4 cm; Wt 70.8 kg
[2019-01-06 13:35] VITALS: BP 144/45
--- NOTE | 2019-01-06 14:41 | NUR ---
MEDICATION GIVEN WITH MILD DIFFICULTY. PATIENT TOLERATED MEDS IN APPLESAUCE AND SMALL SIPS OF WATER. DAUGHTER AND SON AT BESIDE.
--- NOTE | 2019-01-06 16:29 | NUR ---
RIGHT CVL D/C WITH CATHETER TIP INTACT. 15CM LONG. TOLERATED WITHOUT C/O PAIN OR DISCOMFORT.
[2019-01-06 17:15] VITALS: BP 148/83; BP 98/70
--- NOTE | 2019-01-06 17:25 | NUR ---
ACCEPTED MEDS WELL. FAMILY AT BEDIDE. DENIES PAIN. DENIES NEEDS. WILL CONTINUE TO MONITOR.
[2019-01-06 20:00] VITALS: BP 148/82
--- NOTE | 2019-01-06 20:00 | NUR ---
RESTING IN BED VERY [place] DIFFICULT TO COMMUNICATE WITH, RANDOM JERKING MOVEMENTS OF EXTREMITIES NOTED, SON STATES SHE HAS TREMORS, REPOSITIONED IN BED INCONTIENT OF SMALL AMOUT STOOL, MORROW CATH DRAINING YELLOW URINE, SON AT BEDSIDE SIDE RAILS UP X 2 CALL JULIA YUEN,
--- NOTE | 2019-01-06 22:15 | NUR ---
DR GUTIERREZ NOTIFIED DUE TO PT RESTLESS AND RUBBING HEAD LIKE IT HURTS, ORDERS RECIEVED FOR TYLENOL GIVEN
--- NOTE | 2019-01-06 23:30 | NUR ---
CONTINUES TO BE RESTLESS AND MOANING REPOSITIONED FOR COMFORT
[2019-01-07 05:01] LABS: BASOPHILS 1.1 % (0-2); EOSINOPHILS 9.9 % (0-7); HEMATOCRIT 31.1 % (36.0-48.0); HEMOGLOBIN 10.1 g/dL (12-16); IMMATURE GRANULOCYTES 0.2 % (0-5); LYMPHOCYTES 36.3 % (15-50); MCH 30.3 pg (26.0-34.0); MCHC 32.5 g/dL (31.0-37.0); MEAN PLATELET VOLUME 10.1 fL (7.4-10.4); MONOCYTES 9.3 % (2-11); NEUTROPHILS 43.2 % (40-80); PLATELET COUNT 255 10x3/uL (130-400); RBC 3.33 10x6/uL (4.00-5.40); RDW 14.3 % (11.5-14.5); WBC 4.4 10x3/uL (4.8-10.8)
[2019-01-07 05:15] LABS: MCV 93.4 fL (80.0-100.0)
[2019-01-07 05:27] LABS: ANION GAP 9.9 mmol/L (8-16); CALCIUM 7.5 mg/dL (8.5-10.1); CARBON DIOXIDE 34.5 mmol/L (21.0-32.0); CREATININE - SERUM 1.8 mg/dL (0.6-1.3); POTASSIUM - SERUM 3.4 mmol/L (3.5-5.1)
--- NOTE | 2019-01-07 08:00 | NUR ---
PATIENT RESTLESS IN BED. SON STATED HAS BEEN AWAKE ALL NIGHT. HOLDING HEAD. SEEMS TO BE IN PAIN. SON STATED DR PRESCRIBED TYLENOL BUT IT DIDN'T HELP. LUNGS WITH CRACKLES BILATERALLY. DIMINISHED IN LOWER LOBES BILATERALLY. RIGHT MIDLING INTACT AND PATENT. SKIN INTACT WITHOUT REDNESS EXCEPT MILD BREAKDOWN NOTED TO BOTTOM. PATIENT REPOSITIONED IN BED. INCONTINENT BM SPELL NOTED. PATIENT CLEANED AND BED LINENS CHANGED. SON AT BESIDE.
--- NOTE | 2019-01-07 08:37 | NUR ---
MEDICATIONS GIVEN CRUSHED WITH MUCH DIFFICULTY. PATIENT SEEMS MORE CONFUSED THAN YESTERDAY. NOT VERBALLY RESPONSIVE TO QUESTIONS. TOLERATED FEW SIPS OF WATER. WILL CONTINUE TO MONITOR.
[2019-01-07 09:36] VITALS: BP 160/63
--- NOTE | 2019-01-07 09:44 | NUR ---
PATIENT HOLDING HEAD AND MOANING IN PAIN. PRN TYLENOL GIVEN FOR PAIN LEVEL 10 PER FAMILY REQUEST. WILL CONTINUE TO MONITOR
--- NOTE | 2019-01-07 10:42 | NUR ---
PATIENT STILL HOLDING HEAD BUT SEEMS TO BE MOANING AND GRIMACING LESS. FAMILY CONCERNED ABOUT PATIENT PROGRESS. DOCTOR NOTIFIED BY PHONE. WILL CONTINUE TO MONITOR.
--- NOTE | 2019-01-07 11:20 | NUR ---
FAMILY CONCERNED ABOUT PATIENT PAIN LEVEL. DOCTOR NOTIFIED OF PATIENT GRIMACING AND HOLDING HEAD IN PAIN. NEW ORDER FOR PRN MORPHINE GIVEN BY TELEPHONE.
--- NOTE | 2019-01-07 11:35 | NUR ---
PRN MORPHINE GIVEN FOR PAIN 08/12. WILL CONTINUE TO MONITOR.
--- NOTE | 2019-01-07 12:00 | NUR ---
PATIENT PAIN LEVEL DECREASED TO 5/10 AFTER PRN MORPHINE. PATIENT NO LONGER RESTLESS AND FLAILING/MOANING. STILL HOLDING HEAD. DAUGHTERS AT BEDSIDE. WILL CONTINUE TO MONITOR.
--- NOTE | 2019-01-07 12:45 | NUR ---
PATIENT MOANING AND RESTLESS. FAMILY STATES MEDICATION ONLY HELPED FOR SHORT PERIOD OF TIME.
--- NOTE | 2019-01-07 14:21 | NUR ---
NEW ORDER FOR HALDOL AND PSYCH CONSULT PER MD. FAMILY NOTIFIED
--- NOTE | 2019-01-07 15:00 | NUR ---
PO HALDOL GIVEN TO PATIENT. FAMILY EDUCATION PROVIDED. WILL CONTINUE TO MONITOR.
--- NOTE | 2019-01-07 16:04 | NUR ---
PRN MORPHINE INEFFECTIVE. MD NOTIFIED. FAMILY AND RN SPOKE WITH MD. NEW ORDER FOR DILAUDID AND HOSPICE CONSULT.
--- NOTE | 2019-01-07 16:17 | MORECARE ---
CASE MANAGEMENT DISCHARGE SUMMARY PATIENT: LOBO HILARIO UNIT: [id number] ADM DATE: 01/05/19 AGE: 88 : 30 SEX: F ROOM/BED: D.2207 AUTHOR: SVAI RAMIREZ PHYSICIAN: REFERRING PHYSICIAN: CALLY DAVE MD DATE OF SERVICE: 01/07/19 Discharge Plan Patient Name: LOBO HILARIO Facility: [facility]:[place] : 1930 Planned Disposition: Hospice Medical Facility Anticipated Discharge Date: Discharge Date: Expected LOS: Initial Reviewer: [email or web address] Initial Review Date: 01/05/2019 Generated: 01/07/19 5:16 pm Comments DCP- Discharge Planning Updated by [email or web address]: Daxa Amador on 01/07/19 3:[address] FAMILY SPOKE WITH DR DAVE AND WOULD LIKE TO HAVE A HOSPICE CONSULT THEY WOULD LIKE TO USE [facility]. MARICARMEN NOTIFIED DCP- Discharge Planning Updated by [email or web address]: Daxa Amador on 01/07/19 3:[address] Patient Name: LOBO HILARIO Admission Status: Urgent Accout number: [id number] Admission Date: 01-05-2019 : 1930 Admission Diagnosis:PNEUMONIA, UNSPECIFIED ORGANISM Attending: CALLY DAVE Current LOS: 2 Anticipated DC Date: Planned Disposition: Primary Insurance: MEDICARE A & B Discharge Planning Comments: CM met with daughter and son (Sachin) to assess discharge planning needs. The patient is unable to answer any questions at this time. Before the hospitalization she lived with her son (dewayne) where he or a family member was with her to help care for her at times. Sachin was unsure how much they did for her or what medical equipment she has at home. They questioned about transferring their mother to a hospital with a neuro. Family is speaking with Dr Dave. At this time I am unsure of what or where the patients discharge plan will be. Will speak to the family when it is a better time. Cm will continue to follow and assist with DC planning Box Press Operator: Daxa Amador Patient Name: LOBO HILARIO Page [phone] at 1617 All edits/amendments must be made on the electronic document DICTATION DATE: 01/07/191615 POACHER OPERATOR: SPIKE 01/07/191615 RPT#: [id number] DC DATE: STATUS: ADM IN [facility] [address] [place] [address] END OF REPORT
--- NOTE | 2019-01-07 16:22 | NUR ---
PRN DILAUDID GIVEN FOR PAIN 10/10. MED EDUCATION GIVEN TO FAMILY AT BEDSIDE. WILL CONTINUE TO MONITOR.
--- NOTE | 2019-01-07 16:25 | MORECARE ---
CASE MANAGEMENT DISCHARGE SUMMARY PATIENT: LOBO HILARIO UNIT: [id number] ADM DATE: 01/05/19 AGE: 88 : 30 SEX: F ROOM/BED: D.2205 AUTHOR: SAVI RAMIREZ PHYSICIAN: REFERRING PHYSICIAN: CALLY DAVE MD DATE OF SERVICE: 01/07/19 Discharge Plan Patient Name: LOBO HILARIO Facility: [facility]:[place] : 1930 Planned Disposition: Hospice Medical Facility Anticipated Discharge Date: Discharge Date: Expected LOS: Initial Reviewer: [email or web address] Initial Review Date: 01/05/2019 Generated: 01/07/19 5:25 pm Comments DCP- Discharge Planning Updated by [email or web address]: Daxa Amador on 01/07/19 3:[address] FAMILY SPOKE WITH DR DAVE AND WOULD LIKE TO HAVE A HOSPICE CONSULT THEY WOULD LIKE TO USE [facility]. MARICARMEN NOTIFIED DCP- Discharge Planning Updated by [email or web address]: Daxa Amador on 01/07/19 3:[address] Patient Name: LOBO HILARIO Admission Status: Urgent Accout number: [id number] Admission Date: 01-05-2019 : 1930 Admission Diagnosis:PNEUMONIA, UNSPECIFIED ORGANISM Attending: CALLY DAVE Current LOS: 2 Anticipated DC Date: Planned Disposition: Primary Insurance: MEDICARE A & B Discharge Planning Comments: CM met with daughter and son (Sachin) to assess discharge planning needs. The patient is unable to answer any questions at this time. Before the hospitalization she lived with her son (dewayne) where he or a family member was with her to help care for her at times. Sachin was unsure how much they did for her or what medical equipment she has at home. They questioned about transferring their mother to a hospital with a neuro. Family is speaking with Dr Dave. At this time I am unsure of what or where the patients discharge plan will be. Will speak to the family when it is a better time. Cm will continue to follow and assist with DC planning Crane Engineer: Daxa Amador External Providers External Provider: [facility] -[facility] Next Contact Date: Service Request Date: Service Type: Resolution: Reviewer: Comments: Last DP export: 3/7/19 3:16 pm Patient Name: LOBO HILARIO Page [phone] at 1625 All edits/amendments must be made on the electronic document DICTATION DATE: 01/07/191624 ELECTROTYPER: SPIKE 01/07/191624 RPT#: [id number] DC DATE: STATUS: ADM IN [facility] [address] [place] [address] END OF REPORT
--- NOTE | 2019-01-07 17:07 | NUR ---
PATIENT CALM AND RESTING AFTER PRN DILAUDID. WILL CONTINUE TO MONITOR
--- NOTE | 2019-01-07 18:10 | HP ---
PATIENT: LOBO HILARIO MEDICAL RECORD: [id number] ACCOUNT: [id number] LOCATION:[facility] [place] : 30 ADMISSION DATE: 01/05/19 PCP: CALLY DOWLING MD HISTORY AND PHYSICAL EXAMINATION REASON FOR ADMISSION: Congestion and altered mental status. HISTORY OF PRESENT ILLNESS: The patient is an 88-year-old female who is in [facility] for the last week. She has had acute hypoxic respiratory failure and systolic CHF with EF of 35%, post-PTCA. She had negative CT for PE recently, had mild pulmonary hypertension. She also had a non-STEMI with PTCA of the circumflex and diagonal 10 days ago. It was felt her altered mental status was due to metabolic encephalopathy. She has been followed by pulmonary as well. Staff called Dr. Araujo last night because of increasing confusion and their perception of respiratory distress. For that reason, she was transferred back to inpatient this morning. Both her sons are in the room today and related her history of decline since Friday. They wonder if she may have had a stroke. They also expressed that her mother says she is very tired and they wished to make her DO NOT RESUSCITATE status currently. PAST MEDICAL HISTORY: 1. Recent non-STEMI with 2-vessel PTCA. 2. Systolic congestive heart failure with EF 35%. 3. Pulmonary edema. 4. Hypoxic respiratory failure. 5. Axfdn-fm-nokefqm renal insufficiency. 6. Anemia. 7. Osteoarthritis. 8. Orthostatic tremor. 9. History of meningioma. 10. Questionable history of remote stroke. PAST SURGICAL HISTORY: Cataract extraction bilaterally, multiple Avastin injection for the eyes for macular degeneration. FAMILY HISTORY: Father had Alzheimer's. Mother of old age. ALLERGIES: None known. SOCIAL HISTORY: Socially, her son and daughter live with her in [place], [place]. She has been dependent on them for all of her ADLs most recently, is hard of hearing, poor vision. She is a lifelong nonsmoker and does not drink alcohol and is . CURRENT MEDICATIONS: Maxipime 2 grams IV piggyback q. 12 hours, Nystatin 5 cc p.o. a.c. and at bedtime, vancomycin 750 mg IV q.24 hours, Albuterol updrafts q.4 hours, benazepril 10 mg at bedtime, Plavix 75 mg p.o. daily, ferrous sulfate 325 mg a day, Norvasc 2.5 mg p.o. daily, pravastatin 20 mg at bedtime, propranolol XR 60 mg p.o. daily, aspirin 81 mg daily, furosemide 40 mg b.i.d., potassium 20 mEq p.o. daily, Tessalon Perles 200 mg p.o. t.i.d., Pulmicort 0.5 mg per updraft b.i.d., Mucinex XR 600 mg b.i.d., Xalatan ophthalmic drops 0.005% one drop bedtime, Travatan 1 drop each eye at bedtime, MiraLax powder 17 grams p.o. daily, Lovenox 30 mg subQ daily, Nystatin oral suspension 5 cc swish and swallow a.c. and at bedtime. HISTORY AND PHYSICAL [id number] LOBO HILARIO REVIEW OF SYSTEMS: Unobtainable from the patient. Son reports that she has been more somnolent for the last 3 days, but stating that she is very tired. She has been with altered mental status at this time. Blood gas yesterday showed no CO2 retention. PHYSICAL EXAMINATION: VITAL SIGNS: Her temperature is 98.4 orally, pulse 57, respirations 17, blood pressure 143/56 with sat 99% on 5 liters. HEENT: Normocephalic. Her eyes are clear with pinpoint pupils, nonicteric. Oropharynx shows dry mucous membranes. NECK: Supple. CHEST: She has upper airway expiratory wheezes almost stridorous. No respiratory distress, otherwise lungs, bibasilar crackles. HEART: Bradycardic without gallop. II/ aortic murmur appreciated. ABDOMEN: Obese, soft. No organomegaly or tenderness. PELVIC: Deferred. EXTREMITIES: 2+ pretibial edema bilaterally to the knees. No acrocyanosis noted. NEUROLOGIC: The patient is sleeping in bed with her eyes closed with tactile stimulation. She tends to jerk. She is not responding to questions. She will open her eyes. LABORATORY DATA: Shows a white count of 4000, H&H of 9.3 and 29.9. Potassium is low at 3.4, BUN and creatinine are 26 and 1.7. DIAGNOSTIC DATA: One-view chest x-ray dated 01/05/2019 showed interval improvement in bilateral pneumonia with patchy alveolar airspace disease in the lung bases. Vancomycin trough is 20.6 on 01/05/2019. Sputum culture on 12/29/2018 showed Stenotrophomonas maltophilia. ASSESSMENT: 1. Metabolic encephalopathy. 2. Status post acute hypoxic respiratory failure. 3. Systolic congestive heart failure with EF of 35%. 4. Post-non STEMI and PTCA of 2 vessels. 5. Recent negative CTA of the chest. 6. Mild pulmonary hypertension. 7. History of meningioma. 8. Hypertension. 9. Osteoarthritis. 10. Glaucoma. PLAN: We will obtain ABG to rule out CO2 retention at this time. The son wonders about possibility of stroke. We will perform CT of head if patient is stable. Also spoke to both sons today and due to her wishes of feeling tired and poor prognosis, they wished to make the mother DNR at this time. We will have pulmonary reconsult. Further workup pending clinical course. TRANSINT:[id number] Voice Confirmation ID: [id number] DOCUMENT ID: [id number] HISTORY AND PHYSICAL [id number] LOBO HILARIO TIMOTHY MD at 1810 CC: [id number] DICTATION DATE: 01/06/19 0753 MUD TEMPERER: 01/06/19 0856 ADM IN [facility] [address] [facility] [address]
--- NOTE | 2019-01-08 09:20 | MORECARE ---
CASE MANAGEMENT DISCHARGE SUMMARY PATIENT: LOBO HILARIO UNIT: [id number] ADM DATE: 01/05/19 AGE: 88 : 30 SEX: F ROOM/BED: D.2207 AUTHOR: SAVI RAMIREZ PHYSICIAN: REFERRING PHYSICIAN: CALLY DAVE MD DATE OF SERVICE: 01/08/19 Discharge Plan Patient Name: LOBO HILARIO Facility: [facility]:[place] : 1930 Planned Disposition: Hospice Medical Facility Anticipated Discharge Date: Discharge Date: 01/07/2019 Expected LOS: 0 Initial Reviewer: [email or web address] Initial Review Date: 01/05/2019 Generated: 01/08/19 10:20 am Comments DCP- Discharge Planning Updated by [email or web address]: Daxa Amador on 01/07/19 3:[address] FAMILY SPOKE WITH DR DAVE AND WOULD LIKE TO HAVE A HOSPICE CONSULT THEY WOULD LIKE TO USE [facility]. MARICARMEN NOTIFIED DCP- Discharge Planning Updated by [email or web address]: Daxa Amador on 01/07/19 3:[address] Patient Name: LOBO HILARIO Admission Status: Urgent Accout number: [id number] Admission Date: 01-05-2019 : 1930 Admission Diagnosis:PNEUMONIA, UNSPECIFIED ORGANISM Attending: CALLY DAVE Current LOS: 2 Anticipated DC Date: Planned Disposition: Primary Insurance: MEDICARE A & B Discharge Planning Comments: CM met with daughter and son (Sachin) to assess discharge planning needs. The patient is unable to answer any questions at this time. Before the hospitalization she lived with her son (dewayne) where he or a family member was with her to help care for her at times. Sachin was unsure how much they did for her or what medical equipment she has at home. They questioned about transferring their mother to a hospital with a neuro. Family is speaking with Dr Dave. At this time I am unsure of what or where the patients discharge plan will be. Will speak to the family when it is a better time. Cm will continue to follow and assist with DC planning Investigator Claims: Daxa Amador Last DP export: 01/07/19 3:25 pm Patient Name: LOBO HILARIO Page [id number] at 0920 All edits/amendments must be made on the electronic document DICTATION DATE: 01/08/19919 OUTPATIENT PHYSICAL THERAPIST: SPIKE 01/08/19919 RPT#: [id number] DC DATE:01/07/19 STATUS: DIS IN [facility] [address] [place] [address] END OF REPORT
== END 2019-01-07 20:01 | disposition hospice, inpatient (51) | DRG 70 ==
LOC: D.M2 16:16 → D.MS 18:56
PROVIDERS: Emergency Medicine; ADMIT Family Medicine; ATTEND Family Medicine
PROC: 05HY33Z Insertion of Infusion Device into Upper Vein, Percutaneous Approach (ICD-10-PCS; principal; 2019-01-06)
DX: G93.40 Encephalopathy, unspecified (principal); I50.23 Acute on chronic systolic (congestive) heart failure; I21.4 Non-ST elevation (NSTEMI) myocardial infarction; J18.9 Pneumonia, unspecified organism; I13.0 Hypertensive heart and chronic kidney disease with heart failure and stage 1 through stage 4 chronic kidney disease, or unspecified chronic kidney disease; F05 Delirium due to known physiological condition; I11.0 Hypertensive heart disease with heart failure; N18.9 Chronic kidney disease, unspecified; E87.6 Hypokalemia; F03.90 Unspecified dementia, unspecified severity, without behavioral disturbance, psychotic disturbance, mood disturbance, and anxiety

== ENCOUNTER 2019-01-07 20:31 | Inpatient (IN) | payer OTHER ==
--- NOTE | 2019-01-06 21:30 | NUR ---
ATIVAN 1 MG GIVEN ORDERED AND DILAUDID E[employer] PARTS SALES REPRESENTATIVE STARTED AT 0.5MG /HR CONTINOUS INFUSION. PT IMEDIATELY CALMED DOWN WITH SHALLOW RESP, WITH 20 TO 30 SEC PEROIDS OF APNEA, SON JOSE ELIAS STATES THATS HER NORMAL SHE BREATHS LIKE THAT AT HOME, WILL MONITOR
[~2019-01-07] VITALS: Ht 152.4 cm; Wt 70.9 kg
[2019-01-07 20:00] VITALS: BP 97/44
--- NOTE | 2019-01-07 20:00 | NUR ---
ADMITTED TO HOSPICE, FAMILY PRESENT PT VERY RESTLESS TOSSING ALL OVER BED, HAS DOMINGO ORDERED INSTRUCTED FAMILY WOULD GIVE THAT, STATES THEY WOULD STAY
--- NOTE | 2019-01-07 23:00 | NUR ---
CONTINUES TO HAVE 15 TO 20 SEC PEROIDS OF APNEA, NO APPARENT DISTRESS, FAMILY LEAVING AT THIS TIME, WILL CALL IF ANY CHANGES
[2019-01-07 23:52] VITALS: BP 97/44; BMI 30.5
--- NOTE | 2019-01-08 08:22 | NUR ---
PT RESTING IN BED. CHEST RISING AND FALLING. NO S/S OF ACUTE DISTRESS. CL IN PLACE.
[2019-01-08 08:45] VITALS: BP 103/41
[2019-01-08 09:17] VITALS: Ht 152.4 cm; Wt 70.9 kg
--- NOTE | 2019-01-08 12:43 | MORECARE ---
CASE MANAGEMENT DISCHARGE SUMMARY PATIENT: LOBO HILARIO UNIT: [id number] ADM DATE: 01/07/19 AGE: 88 : 30 SEX: F ROOM/BED: D.2207 AUTHOR: SAVI RAMIREZ PHYSICIAN: REFERRING PHYSICIAN: GABRIELLE BELTRAN MD DATE OF SERVICE: 01/08/19 Discharge Plan Patient Name: LOBO HILARIO Facility: [facility]:[place] : 1930 Planned Disposition: Anticipated Discharge Date: Discharge Date: Expected LOS: Initial Reviewer: [email or web address] Initial Review Date: 01/07/2019 Generated: 01/08/19 1:43 pm Patient Name: LOBO HILARIO Page [phone] at 1243 All edits/amendments must be made on the electronic document DICTATION DATE: 01/08/19 1242 EUCLID OPERATOR: SPIKE 01/08/19 1242 RPT#: [id number] DC DATE: STATUS: ADM IN [facility] [address] [place] [address] END OF REPORT
--- NOTE | 2019-01-08 17:55 | NUR ---
PT RESTING IN BED. CHEST RISING AND FALLING. APNEA AND SHALLOW RESP NOTED. CL IN PLACE.
--- NOTE | 2019-01-08 18:35 | NUR ---
PT RESTING IN BED. CHEST RISING AND FALLING. APNEA AND SHALLOW BREATHING NOTED. CORRECTION LIEUTENANT CONTINUOS PER MD ORDERS. CL IN PLACE.FAMILY AT BEDSIDE.
--- NOTE | 2019-01-08 19:15 | NUR ---
RECEIVED CARE FROM DAY NURSE. LYING IN BED ON BACK. PERIODS OF APNEA NOTED OTHERWISE NO DISTRESS NOTED. IV INFUSING TO PATENT RIGHT MIDLINE. MORROW TO GRAVITY. CALL LIGHT AT SIDE.
[2019-01-08 20:00] VITALS: BP 115/33
[2019-01-09 03:00] VITALS: BP 108/60
--- NOTE | 2019-01-09 08:19 | NUR ---
PT SLEEPING APPEARS COMFORTABLE. EXPIRATORY WHEEZES. BOWEL SOUNDS HYPOACTIVE. MIDLINE TO UPPER RIGHT ARM, PATENT, DRESSING CLEAN DRY AND INTACT. E BUSINESS MANAGER IN PLACE. BED LOW, CALL LIGHT IN REACH. NO OTHER NEEDS AT THIS TIME.
[2019-01-09 10:59] VITALS: BP 93/36
--- NOTE | 2019-01-09 19:15 | NUR ---
RECIEVED CARE FROM DAY NURSE. LYING IN BED WITH EYES CLOSED. BREATHING APNEIC WITH AUDIBLE GURGLES. IV INFUSING TO LEFT MIDLINE. MORROW TO GRAVITY. NO DISTRESS NOTED.
[2019-01-09 20:36] VITALS: BP 113/41
--- NOTE | 2019-01-09 21:55 | NUR ---
SUCTIONED WITH REMOVAL OF MODERATE AMOUNT OF CREAMY YELLOW SECREATIONS REMOVED. ATROPINE GIVEN.
--- NOTE | 2019-01-10 01:09 | NUR ---
SUCTIONED WITH REMOVAL OF MODERATE AMOUNT OF CREAMY YELLOW SECREATIONS REMOVED. ATROPINE GIVEN.
--- NOTE | 2019-01-10 05:06 | NUR ---
I have reviewed this patient and I concur with the Shift Assessment completed by the Licensed Practical Nurse today this shift.
[2019-01-10 08:59] VITALS: BP 117/60
--- NOTE | 2019-01-10 09:01 | NUR ---
PT RESTING IN BED WITH EYES CLOSED. CHEST RISING AND FALLING. APNEA PRESENT, SHALLOW RESP NOTED. AROUSED BY DEEP STIMULI ONLY. NO S/S OF ACUTE DISTRESS. CL IN PLACE.
--- NOTE | 2019-01-10 12:11 | NUR ---
PT FAMILY REQUESTED THAT WE DO NOT MOVE HER OR TURN HER. HE SAID "SHE LOOKS VERY COMFORTABLE"
--- NOTE | 2019-01-10 18:43 | NUR ---
PT RESTING IN BED. CHEST RISING AND FALLING. APNEA NOTED. CL IN PLACE.
--- NOTE | 2019-01-10 19:15 | NUR ---
RECEIVED CARE FROM DAY NURSE. LYING IN BED. RESPIRATIONS MORE EVEN THEN PREVIUS SHIFT BY THIS NURSE. MORROW TO GRAVITY. IV INFUSING PER ORDER.
[2019-01-10 20:00] VITALS: BP 126/77
[2019-01-11] VITALS: BP 102/59
--- NOTE | 2019-01-11 06:53 | NUR ---
I have reviewed this patient and I concur with the Shift Assessment completed by the Licensed Practical Nurse today this shift.
--- NOTE | 2019-01-11 07:30 | NUR ---
MORNING ASSESSMENT COMPLETE. SEE ASSESSMENT FLOWSHEET FOR FURTHER DETAILS. PT RESTING COMFORTABLY. SECRETIONS NOTED TO MOUTH- SUCTIONING AND USING ATROPINE DROPS. WILL CONTINUE TO MONITOR PT.
[2019-01-11 08:44] VITALS: BP 117/52
[2019-01-11 21:19] VITALS: BP 114/73
--- NOTE | 2019-01-12 02:17 | NUR ---
2000) REC'D. TILTED TO RIGHT SIDE.PILLOW BETWEEN KNEES.DROPLET PRECAUTIONS REMAINS IN PROGRESS.DILAUDID RESAW FEEDER CONTINUOUS RATE OF 0.3MG/HR PREVIOUSLY ORDERED.MORROW PATENT DRAINING LOUIE COLORED URINE. HOSPICE PROTOCOL CONTINUES WILL CONTINUE TO MONITOR FOR ANY CHGES. AND FOLLOW CURRENT PLAN OF CARE.
--- NOTE | 2019-01-12 04:45 | NUR ---
I have reviewed this patient and I concur with the Shift Assessment completed by the Licensed Practical Nurse today this shift.
[2019-01-12 05:51] VITALS: BP 133/61
--- NOTE | 2019-01-12 07:30 | NUR ---
REC'D IN BED UNRESPONSIVE TO VOICE WILL MAKE FACIAL GRIMACE WHEN IN PAIN. RESP SLIGHTLY LABORED. TURN AND REPOSITIONED FOR COMFORT. ASSESSMENT COMPLETED. C/L IN REACH AT BEDSIDE.
[2019-01-12 09:46] VITALS: BP 135/58
--- NOTE | 2019-01-12 16:49 | NUR ---
I have reviewed this patient and I concur with the Shift Assessment completed by the Licensed Practical Nurse today this shift.
[2019-01-12 21:37] VITALS: BP 123/48
[2019-01-13 01:33] VITALS: BP 109/46
--- NOTE | 2019-01-13 02:15 | NUR ---
REC'Audrey RUELAS. SHIFT SUPINE POSITION. REPOSITIONED TO LEFT SIDE.PILLOW TO BACK AND BETWEEN LEGS FOR COMFORT MORROW PATENT DRAINING CONCENTRATED URINE.NONVERBALLY RESPONSIVE HOSPICE PROTOCOL CONTINUES ORDERED
[2019-01-13 04:48] VITALS: BP 111/50
--- NOTE | 2019-01-13 04:48 | NUR ---
I have reviewed this patient and I concur with the Shift Assessment completed by the Licensed Practical Nurse today this shift.
[2019-01-13 08:45] VITALS: BP 130/85
--- NOTE | 2019-01-13 16:47 | NUR ---
I have reviewed this patient and I concur with the Shift Assessment completed by the Licensed Practical Nurse today this shift.
[2019-01-13 21:47] VITALS: BP 112/52
[2019-01-14 01:16] VITALS: BP 124/54
--- NOTE | 2019-01-14 04:03 | NUR ---
REC'D.SUPINE POSITION.02 4L NC. FAMILY AT BEDSIDE.HOSPISE PROTOCOL CONTINUES ORDERED.CONTINUOUS DILAUDID DRIP AT 0.3/HR WILL CONTINUE TO MONITOR FOR ANY CHGES. AND FOLLOW CURRENT PLAN OF CARE.MORROW PATENT AND DRAINING CONCENTRATED URINE. WILL CONTINUE TO MONITOR FOR ANY CHGES. AND FOLLOW CURRENT PLAN OF CARE
--- NOTE | 2019-01-14 07:52 | NUR ---
PT RESTING IN BED. CHEST RISING AND FALLING. NO AROUSING TO VERBAL STIMULI. POTATO CHIP PROCESSING SUPERVISOR CONT DILAUDID PER MD ORDER. NO S/S OF ACUTE DISTRESS. CL IN PLACE
--- NOTE | 2019-01-14 07:54 | NUR ---
I have reviewed this patient and I concur with the Shift Assessment completed by the Licensed Practical Nurse today this shift.
[2019-01-14 10:39] VITALS: BP 103/59
--- NOTE | 2019-01-14 18:25 | NUR ---
PT RESTING IN BED WITH EYES CLOSED. AROUSED TO DEEP STIMULI ONLY. [place] NOTED. CL IN PLACE.
[2019-01-14 20:20] VITALS: BP 94/51
[2019-01-15 09:38] VITALS: BP 112/51
--- NOTE | 2019-01-15 17:59 | NUR ---
FAMILY IN ROOM. COCCYX DRESSING COVERED WITH A NEW MEPILEX. PATIENT TURNED TO LEFT SIDE. OPENED HER EYES FOR A BRIEF TIME
--- NOTE | 2019-01-15 19:10 | NUR ---
FAMILY IN ROOM. PT WITH EYES CLOSED. RESPIRATIONS NOTED. LUNGS AUSCULTATED AND PRESENT WITH DEEP EXPIRATORY WHEEZES. PT DOES NOT APPEAR TO BE DISTRESSED. DILAUDID WORKFORCE PLANNING ANALYST PUMP INFUSING AT .75 CONTINUOUS. UPPER MIDLINE WITH NS AT 20 INFUSING. PT PRESENTS WITH ALL OVER GENERALIZED EDEMA. FOELY CATHETER WITH NO URINE IN BAG AT THIS TIME. CPOC.
[2019-01-15 20:53] VITALS: BP 102/44
--- NOTE | 2019-01-16 04:07 | NUR ---
ENTERED PT ROOM. PT NOT BREATHING. NO PULSE FELT. PULSE OX NOT READING PULSE OR O2. CONTACTED [facility] NURSE. ALFONSO STATED SHE WOULD CALL DR AND PRISON.
--- NOTE | 2019-01-16 07:31 | NUR ---
PATIENT CLEANED UP AT THIS TIME. MORROW AND MIDLINE REMOVED. AWAITING HOME TO ACQUISITION PROFESSIONAL PATIENT BODY. FAMILY AT SIDE.
--- NOTE | 2019-01-16 07:41 | NUR ---
HOME HERE TO GET PATIENT. PERSONAL BELONGINGS WITH FAMILY.
== END 2019-01-16 08:38 | DRG 951 ==
LOC: D.MS 20:31
PROVIDERS: ADMIT Legal Medicine; ATTEND Legal Medicine
DX: Z51.5 Encounter for palliative care (principal)